=== PATIENT | male | born 1945 | race Caucasian/White ===

== ENCOUNTER 2018-02-19 02:15 | Outpatient (CLI) | payer BC, SELFPAY ==
[2018-02-19 12:58] LABS: Abs Immature Grans 0.02 k/cumm (0.0-0.09); Absolute Basophil Count 0.02 k/cumm (0.0-0.2); Absolute Eosinophil Count 0.24 k/cumm (0.0-0.7); Absolute Lymphocyte Count 2.22 k/cumm (1.2-3.4); Absolute Monocyte Count 0.51 k/cumm (0.11-0.7); Absolute Neutrophil Count 2.35 k/cumm (1.2-6.7); Basophils % 0.4; Eosinophils % 4.5; HCT 40.4 % (40.0-50.0); HGB 13.1 g/dL (13.5-17.5); Immature Grans % 0.4; Lymphocytes % 41.4; Mean Corp. HGB Concentration 32.4 g/dL (32.0-36.0); Mean Corpuscular Volume 89.4 fL (80-95); Mean Platelet Volume 11.2 fL (8.0-11.0); Monocytes % 9.5; Neutrophils % 43.8; Platelet Count 172 x1000/uL (130-400); RBC 4.52 m/cumm (4.50-6.00); RBC Distribution Width 17.1 % (11.8-14.1); White Blood Cell Count 5.36 k/cumm (4.4-10.8)
== END 2018-02-19 02:35 ==
PROVIDERS: PCP Internal Medicine; Visit Provider Internal Medicine
DX: D64.9 Anemia, unspecified (principal)
CPT/HCPCS: 36415; 85025

== ENCOUNTER → 2018-06-19 10:30 | Outpatient (BNVA) | payer MEDICARE, BC, SELFPAY | PROVIDERS: PCP Internal Medicine; Referring Provider Internal Medicine; Visit Provider Orthopaedic Surgery | DX: M65.4 Radial styloid tenosynovitis [de Quervain] (principal); M25.532 Pain in left wrist | CPT/HCPCS: 99211; 99214; L3908 ==

== ENCOUNTER → 2018-07-23 09:12 | Outpatient (BNVA) | payer MEDICARE, BC, SELFPAY | PROVIDERS: PCP Internal Medicine; Referring Provider Internal Medicine; Visit Provider Orthopaedic Surgery | DX: M65.4 Radial styloid tenosynovitis [de Quervain] (principal) | CPT/HCPCS: 99213 ==

== ENCOUNTER 2018-08-01 13:57 | Outpatient (RCR) | payer MEDICARE, BC, SELFPAY | END 2018-08-14 16:08 | LOC: CR 13:57 | PROVIDERS: PCP Internal Medicine; Visit Provider Family Medicine | DX: Z51.89 Encounter for other specified aftercare (principal) ==

== ENCOUNTER 2018-08-16 15:20 | Outpatient (RCR) | payer SELFPAY ==
--- NOTE | 2018-08-13 09:16 | PR3E_ITS ---
73 year old male returning to cardiac rehab maintenance phase, 3 days per week, after many months recovery and continued physical therapy for severe guillain- barre syndrome event. PMH: guillain-barre, bells palsy, Stents 2014, HLD, HTN, PAD s/p stent 2011, CAD, SILVANA, glaucoma, cirrhosis. First day of exercise: 08/12/18: BP at rest 133/72, HR rest 47 bpm. Patient completed 18.5 minutes of exercise: NuStep 5.5 minutes, UBE 5 minutes, and treadmill 5 minutes and rower 3 minutes. HR w/ exercise ranged 46-55 bpm. BENJI RPE scores 12-13. BP with exercise ranged 113/53-151/71. Tolerated exercise regimen without any adverse signs or symptoms. No concerns at this time, will continue to progress as tolerated.
== END 2018-08-18 23:59 | disposition home or self-care (01) ==
LOC: CR 15:20
PROVIDERS: PCP Internal Medicine; Visit Provider Family Medicine
DX: Z51.89 Encounter for other specified aftercare (principal)

== ENCOUNTER → 2018-08-20 09:18 | Outpatient (BNVA) | payer MEDICARE, BC, SELFPAY | PROVIDERS: PCP Internal Medicine; Referring Provider Internal Medicine; Visit Provider Orthopaedic Surgery | DX: M65.4 Radial styloid tenosynovitis [de Quervain] (principal) | CPT/HCPCS: 99211; 99212 ==

== ENCOUNTER 2018-08-21 09:49 | Outpatient (CLI) | payer MEDICARE, BC, SELFPAY ==
--- NOTE | 2018-08-21 17:20 | HPE_ITS ---
Date of service: 08/21/18 Time of Service: 08:15 Assessment and Plan (1) Hypertension: Current visit: No Status: Resolved (2) Hx of Guillain-[place] syndrome: Current visit: No Status: Acute (3) Tenosynovitis, de Quervain: Current visit: Yes Status: Acute 73-year-old male with history of atherosclerotic cardiovascular disease/angina without a history of NH with total resolution of symptoms following stenting with no use of sublingual nitroglycerin with left-sided de Quervain's syndrome not resolving with conservative measures of splinting and oral prednisone short taper. The patient is very familiar with the surgical procedure and is aware of the short postop course consisting of splinting for 5 days and is anxious to proceed. History of Present Illness Chief Complaint: left wrist pain Narrative: javed reports persistent left nondominant wrist pain of several months duration that is bothersome with opening jars lifting his coffee cup despite thumb spica splinting for several months and a short prednisone taper. He has very familiar with the symptoms as he is status post a right first dorsal extensor compartment release for de Quervain's tenosynovitis. He now presents for surgical intervention since conservative measures did not quiet down his discomfort at all. Pertinent Surgical Information Denies previous medical history of: stroke, TIA, NH, use of sublingual nitroglycerin, GERD, seizures, diabetes, thyroid disease, sleep apnea, liver disease, hepatitis, hematologic disorders Denies previous complications from surgery or anesthesic agents with respect to high fever, prolonged vomiting and difficulty waking up Review of Systems Constitutional Denies fever(s) and Denies headache(s) ENT Denies headache(s), Denies nasal congestion, Denies nasal discharge and Denies sore throat Cardiovascular Denies chest pain, Denies chest pain with activity, Denies palpitations, Denies dyspnea on exertion, Denies orthopnea and Denies paroxysmal nocturnal dyspnea Respiratory Denies cough, Denies excessive phlegm production, Denies pain on inspiration, Denies dyspnea on exertion and Denies wheezing Gastrointestinal Denies abdominal pain, Denies melena, Denies hematochezia, Denies nausea and Denies vomiting Genitourinary Denies hematuria, Denies dysuria and Denies urinary frequency Comments: Denies burning sensation with urination Musculoskeletal Reports as per HPI Neurologic Denies headache(s) Psychiatric Denies anxiety and Denies depression Endocrine Denies palpitations Comments: Denies any unplanned weight changes Allergic/Immunologic Denies wheezing PFSH Medical History SILVANA (obstructive sleep apnea) (Resolved) Hx of Guillain-[place] syndrome (Acute) Hx of coronary artery disease (Acute) Hx of glaucoma (Acute) Hx of hearing loss (Acute) Hx of peripheral vascular disease (Acute) Hx of psoriasis (Acute) Hypertension (Resolved) Surgical History Status post de Quervain's release surgery (Acute) Hx of tracheostomy (Acute) History of cataract surgery (Chronic) History of coronary artery stent placement (Chronic) History of esophagogastroduodenoscopy (EGD) (Chronic) Excision, Skin Mass MOHS Family History Mother Essential hypertension Father Essential hypertension Heart disease Hyperlipidemia Myocardial infarction Stroke Sister Hyperlipidemia Cancer Grandfather No problems noted. Grandfather No problems noted. Grandmother No problems noted. Grandmother No problems noted. Social History Smoking/Tobacco Use Status: Former Tobacco Use Quit Date: 05/21/08 Smokeless tobacco user: dissolvable tobacco Alcohol Intake: never Details: abstinent since 2011 Drug use: Occasionally Substance use type: marijuana Household members: spouse and other Details: 3 Do you feel safe at home: Yes Do you feel safe in your relationship?: Yes Meds Home Medications Medication Instructions Recorded Confirmed Type Cosopt Eye Drops 1 drp OU BID drp 10/04/12 08/21/18 History latanoprost [Xalatan] 1 drp OU DAILY drp 10/04/12 08/21/18 History sildenafil [Viagra] 100 mg PO PRN 10/04/12 08/20/18 History docusate sodium [Colace] 2 tab PO DAILY 10/17/17 08/21/18 History pravastatin 80 mg PO DAILY #90 tab-cap 10/17/17 08/21/18 Rx sennosides [Senna] 2 tab-cap PO DAILY tab-cap 10/17/17 08/21/18 History trazodone 75 mg PO HS #120 cap 11/02/17 08/21/18 Rx pantoprazole 40 mg PO DAILY #90 tab-cap 01/10/18 08/21/18 Rx acyclovir 400 mg tablet 400 mg PO Q4H PRN #20 tab 02/18/18 08/21/18 Rx aspirin 81 mg tablet,delayed 81 mg PO DAILY 02/18/18 08/21/18 History release omega-3 fatty acids 1,250 mg 1,280 mg PO TID cap 02/18/18 08/21/18 History capsule levothyroxine 75 mcg tablet 75 mcg PO DAILY #90 tab-cap 06/14/18 08/21/18 Rx nitroglycerin 0.4 mg sublingual 0.4 mg BUCCAL ONCE #60 tab 07/17/18 08/21/18 Rx tablet ustekinumab [Stelara] 45 mg SUBCUT Q12W 08/21/18 08/21/18 History Allergies Allergy/AdvReac Type Severity Reaction Status Date / Time codeine [Codeine] Allergy Intermediate ITCHING Unverified 08/21/18 10:09 Exam Const General: cooperative HENMT Throat: posterior oropharynx normal Eyes General: appearance normal, both eyes and all related structures Conjunctivae: conjunctivae normal Sclera: sclerae normal Neck Neck: no JVD Carotids: normal carotid upstroke and no bruits Resp Effort & Inspection: normal respiratory effort and able to speak in complete sentences Auscultation: clear to auscultation bilaterally, no rales, no rhonchi and no wheezes Cardio Rate: regular rate Heart Sounds: S1 normal, S2 normal and no murmurs Bruits: no abdominal aortic bruits Pulses: normal peripheral pulses Other: No pulsatile mass noted with palpation over the abdominal aorta GI Palpation: soft and no hepatosplenomegaly Auscultation: normal bowel sounds General: No CVA tenderness Extrem General: no pedal edema Other: left wrist with tender over first dorsal extensor compartment with a positive Myra's test no pain to thumb metacarpal grind and normal EPL function. Lower extremities show trace pedal edema with elastic sock edgge imprint.
== END 2018-08-21 10:09 ==
PROVIDERS: PCP Internal Medicine; Visit Provider Orthopaedic Surgery
DX: Z01.818 Encounter for other preprocedural examination (principal); M65.4 Radial styloid tenosynovitis [de Quervain]; I10 Essential (primary) hypertension

== ENCOUNTER 2018-08-28 11:18 | Day surgery (SDC) | payer MEDICARE, BC, SELFPAY ==
[2018-08-28 11:51] VITALS: BP 125/67; PULSE 42; RESP 16; TEMP 36.7; O2SAT 99
[2018-08-28] MEDS: Lactated Ringers 1,000 ML 80 ML IV (12:10)
[2018-08-28] MEDS: ceFAZolin 1 GM/50 ML BAG IVPB (13:11)
--- NOTE | 2018-08-28 14:06 | PDOC.DSDIS_ITS ---
Discharge Plan Disposition Patient Disposition: HOME Condition: Good Discharge Details Reason For Visit: DeQuervain's release L Attending Provider: Maninder Mueller Primary Care Provider: Katty Mcwilliams Home Meds and New Rx's Prescriptions: New ibuprofen 800 mg tablet 800 mg PO TID Qty: 20 RF: 0 hydrocodone-acetaminophen 5-325 mg tablet 1 tab PO Q6H PRN (Reason: pain) Qty: 7 RF: 0 Continued nitroglycerin 0.4 mg tablet, sublingual 0.4 mg Buccal ONCE Qty: 60 RF: 2 omega-3 fatty acids 1,250 mg capsule 1,280 mg PO TID RF: 0 aspirin [Adult Low Dose Aspirin] 81 mg tablet,delayed release (DR/EC) 81 mg PO DAILY RF: 0 acyclovir [Zovirax] 400 mg tablet 400 mg PO Q4H PRN Qty: 20 RF: 5 latanoprost [Xalatan] 2.5 ML drops 1 drp OU DAILY RF: 0 sildenafil [Viagra] 100 MG tablet 100 mg PO PRN RF: 0 COSOPT EYE DROPS 5 ML drops 1 drp OU BID RF: 0 sennosides [senna] 8.6 MG tablet 2 tab-cap PO DAILY RF: 0 docusate sodium [Colace] 100 MG capsule 2 tab PO DAILY RF: 0 pravastatin 80 MG tablet 80 mg PO DAILY Qty: 90 RF: 3 trazodone 50 MG tablet 75 mg PO HS Qty: 120 RF: 5 pantoprazole 40 MG tablet,delayed release (DR/EC) 40 mg PO DAILY Qty: 90 RF: 3 levothyroxine [Synthroid] 75 mcg tablet 75 mcg PO DAILY Qty: 90 RF: 4 Stelara 45 mg/0.5 mL Syringe 45 mg SUBCUT Q12W RF: 0 Discharge Instructions Additional Instructions: Elevate L hand above heart level as much as possible overnite tonite. Keep dressings and splint dry and intact for 5 days. After 5 days, remove splint AND dressings and begin to move L thumb and wrist. Use L hand as much as your discomfort allows. Leave incision uncovered when it is dry and sealed. Follow up with in 10-14 days. Take ibuprofen as prescribed for inflammation and swelling. Take hydrocodone if needed, for breakthru pain. Referrals: Maninder Mueller MD [ [facility] STAFF PHYSICIAN] - (f/u in 10-14 days.) Equipment/Supplies: Splint Activity:: Activity as Tolerated Shower/Bathe:: Cover Diet:: As Tolerated Discharge Orders Discharge Orders: Discharge Order (Routine); Ordered 08/28/18 Ordered By: Maninder Mueller DS: Diagnosis Discharge Diagnosis (1) Tenosynovitis, de Quervain: Status: Acute
[2018-08-28 14:35] VITALS: BP 139/76; PULSE 42; RESP 14; TEMP 36.7; O2SAT 98
--- NOTE | 2018-08-29 07:15 | ROE_ITS ---
REPORT OF OPERATIVE PROCEDURE DATE OF PROCEDURE August 28, 2018 PREOPERATIVE DIAGNOSIS De Quervain's tendinitis, left wrist. POSTOPERATIVE DIAGNOSIS De Quervain's tendinitis, left wrist. PROCEDURES Tendon sheath incision at radial styloid for de Quervain's tendinitis. Application of a short arm thumb spica splint. ANESTHESIA IV regional. SURGEON Maninder Mueller M.D. INDICATIONS This is a 73-year-old white male with de Quervain's tendinitis of his left wrist. This has failed to respond to conservative treatment of anti-inflammatory medications and splinting. Tendon sheath incision of the first dorsal extensor compartment was recommended to alleviate his symp toms on a permanent basis. The risks and complications of the procedure were explained to the patient in detail preoperatively. DESCRIPTION OF PROCEDURE The patient was taken to the Operating Room on 08/28/2018. He was placed supine on the operating tabl e and an IV regional anesthetic was administered to the right upper extremity. Once good anesthesia was obtained, the right hand, wrist and forearm were prepped and draped free in the usual sterile fas hion. A longitudinal incision was made over the first dorsal extensor compartment at the radial styl oid. The incision was about 2 and a half to 3 inches in length. The incision was carried down throu gh the skin and subcu. The terminal branches of the superficial radial nerve were mobilized away fro m the first dorsal extensor compartment. The first dorsal extensor compartment was then longitudinall y incised. As the contents of the compartment were explored, there was one tendon slip that was encased in a sep arate compartment within the first dorsal extensor compartment. The wall of the separate compartment was excised with a rongeur, freeing the tendon slip. At this point, the wound was irrigated with sali ne solution. The wound margins were infiltrated with 0.5% Marcaine with epinephrine solution. The ski n edges were approximated with horizontal mattress sutures of #4-0 Nylon suture material. The wound was dressed with Xeroform gauze, sterile gauze, 4x4s, ABD Pad, wrapped with a 4-inch Kerlix bandage, and then a radial thumb spica splint was applied with a 3-inch Mitch bandage. The patient's anesthesia was reversed without complication. Blood loss was minimal. He was discharged to the Recovery Room in good condition. The patient was later discharged home from the Day Surgery Unit when fully recovered from his IV janelle onal anesthesia. He was given in instructions to elevate his left hand above heart level as much as possible overnight tonight. He is to keep the dressings and splint intact and dry for five days. After five days, he is to remove his splint and dressings and begin to move his left thumb and wrist. He may use his left hand as muc h as discomfort allows. He may shower and bathe and get his incision wet after five days. He may gayathri ve the incision uncovered when it is dry and sealed. He will take ibuprofen or Tylenol for mild pain, and he was given a prescription for breakthrough pa in of hydrocodone with APAP 5/325, one tablet every six hours as needed, #7 tabs. He will follow up with Dr. Mueller 10 to 14 days.
== END 2018-08-28 14:59 | disposition home or self-care (01) ==
PROVIDERS: PCP Internal Medicine; Visit Provider Orthopaedic Surgery
PROC: (CPT 25000; principal; 2018-08-28 13:00)
DX: M65.4 Radial styloid tenosynovitis [de Quervain] (principal)
CPT/HCPCS: 25000; J0690

== ENCOUNTER → 2018-09-10 09:04 | Outpatient (BNVA) | payer MEDICARE, BC, SELFPAY | PROVIDERS: PCP Internal Medicine; Referring Provider Internal Medicine; Visit Provider Orthopaedic Surgery | DX: Z47.89 Encounter for other orthopedic aftercare (principal); M65.4 Radial styloid tenosynovitis [de Quervain] ==

== ENCOUNTER 2018-09-11 13:00 | Outpatient (RCR) | payer SELFPAY | END 2018-09-17 23:59 | disposition home or self-care (01) | LOC: CR 13:00 | PROVIDERS: PCP Internal Medicine; Visit Provider Family Medicine | DX: Z51.89 Encounter for other specified aftercare (principal) | CPT/HCPCS: S9472 ==

== ENCOUNTER 2018-10-16 07:00 | Outpatient (RCR) | payer SELFPAY | END 2018-10-18 23:59 | disposition home or self-care (01) | LOC: CR 07:00 | PROVIDERS: PCP Internal Medicine; Visit Provider Family Medicine | DX: Z51.89 Encounter for other specified aftercare (principal) | CPT/HCPCS: S9472 ==

== ENCOUNTER 2018-11-15 12:51 | Outpatient (RCR) | payer SELFPAY | END 2018-11-17 23:59 | disposition home or self-care (01) | LOC: CR 12:51 | PROVIDERS: PCP Internal Medicine; Visit Provider Family Medicine | DX: Z51.89 Encounter for other specified aftercare (principal) | CPT/HCPCS: S9472 ==

== ENCOUNTER 2018-12-18 13:39 | Outpatient (RCR) | payer SELFPAY | END 2018-12-18 23:59 | disposition home or self-care (01) | LOC: CR 13:39 | PROVIDERS: PCP Internal Medicine; Visit Provider Family Medicine | DX: Z51.89 Encounter for other specified aftercare (principal) | CPT/HCPCS: S9472 ==

== ENCOUNTER 2019-01-03 13:24 | Outpatient (RCR) | payer SELFPAY | END 2019-01-18 23:59 | disposition home or self-care (01) | LOC: CR 13:24 | PROVIDERS: PCP Internal Medicine; Visit Provider Family Medicine | DX: Z51.89 Encounter for other specified aftercare (principal) | CPT/HCPCS: S9472 ==

== ENCOUNTER 2019-01-13 09:19 | Outpatient (CLI) | payer MEDICARE, BC, SELFPAY ==
[2019-01-13 12:35] LABS: Abs Immature Grans 0.01 k/cumm (0.0-0.09); Absolute Basophil Count 0.03 k/cumm (0.0-0.2); Absolute Eosinophil Count 0.36 k/cumm (0.0-0.7); Absolute Lymphocyte Count 2.08 k/cumm (1.2-3.4); Absolute Monocyte Count 0.53 k/cumm (0.11-0.7); Absolute Neutrophil Count 2.49 k/cumm (1.2-6.7); Basophils % 0.5; Eosinophils % 6.5; HCT 43.5 % (40.0-50.0); HGB 14.3 g/dL (13.5-17.5); Immature Grans % 0.2; Lymphocytes % 37.8; Mean Corp. HGB Concentration 32.9 g/dL (32.0-36.0); Mean Corpuscular Hemoglobin 29.1 pg (27.0-33.0); Mean Corpuscular Volume 88.6 fL (80-95); Mean Platelet Volume 11.3 fL (8.0-11.0); Monocytes % 9.6; Neutrophils % 45.4; Platelet Count 188 x1000/uL (130-400); RBC 4.91 m/cumm (4.50-6.00); RBC Distribution Width 15.6 % (11.8-14.1)
[2019-01-13 12:45] LABS: ALT 30 U/L (16-63); AST 21 U/L (15-37); Albumin 3.9 g/dL (3.4-5.0); Alkaline Phosphatase 66 U/L (46-116); Anion Gap 10.1 mmol/L (3-11); BUN 15 mg/dL (7-18); Bilirubin, Total 0.5 mg/dL (0.2-1.0); CO2 27.9 mmol/L (21.0-32.0); CREATININE 1.01 mg/dL (0.70-1.30); Chloride 107 mmol/L (98-107); Glucose 97 mg/dL (70-100); Potassium 4.3 mmol/L (3.5-5.1); Sodium 145 mmol/L (136-145); Total Protein 6.9 g/dL (6.4-8.2)
[2019-01-13 14:27] LABS: ESR 15 mm/hr (1-20)
[2019-01-14 10:23] LABS: PSA, Screening 1.2 ng/ml (0-6.5)
== END 2019-01-13 09:39 ==
PROVIDERS: PCP Internal Medicine; Visit Provider Internal Medicine
DX: R35.0 Frequency of micturition (principal); R50.9 Fever, unspecified; G61.0 Guillain-Barre syndrome; I10 Essential (primary) hypertension; Z12.5 Encounter for screening for malignant neoplasm of prostate
CPT/HCPCS: 36415; 80053; 84153; 85652; 85025

== ENCOUNTER 2019-02-17 13:00 | Outpatient (RCR) | payer SELFPAY | END 2019-02-17 23:59 | disposition home or self-care (01) | LOC: CR 13:00 | PROVIDERS: PCP Internal Medicine; Visit Provider Family Medicine | DX: Z51.89 Encounter for other specified aftercare (principal) | CPT/HCPCS: S9472 ==

== ENCOUNTER 2019-03-17 13:36 | Outpatient (RCR) | payer SELFPAY | END 2019-03-20 23:59 | disposition home or self-care (01) | LOC: CR 13:36 | PROVIDERS: PCP Internal Medicine; Visit Provider Family Medicine | DX: Z51.89 Encounter for other specified aftercare (principal) | CPT/HCPCS: S9472 ==

== ENCOUNTER 2019-04-14 13:15 | Outpatient (RCR) | payer SELFPAY | END 2019-04-19 23:59 | disposition home or self-care (01) | LOC: CR 13:15 | PROVIDERS: PCP Internal Medicine; Visit Provider Family Medicine | DX: Z51.89 Encounter for other specified aftercare (principal) | CPT/HCPCS: S9472 ==

== ENCOUNTER 2019-04-20 23:26 | Outpatient (RCR) | payer SELFPAY | END 2019-05-20 23:59 | disposition home or self-care (01) | LOC: CR 23:26 | PROVIDERS: PCP Internal Medicine; Visit Provider Family Medicine | DX: Z51.89 Encounter for other specified aftercare (principal) ==

== ENCOUNTER 2019-06-16 13:09 | Outpatient (RCR) | payer SELFPAY | END 2019-06-20 23:59 | disposition home or self-care (01) | LOC: CR 13:09 | PROVIDERS: PCP Internal Medicine; Visit Provider Family Medicine | DX: Z51.89 Encounter for other specified aftercare (principal) | CPT/HCPCS: S9472 ==

== ENCOUNTER 2019-07-18 13:35 | Outpatient (RCR) | payer SELFPAY | END 2019-07-19 23:59 | disposition home or self-care (01) | LOC: CR 13:35 | PROVIDERS: PCP Internal Medicine; Visit Provider Family Medicine | DX: Z51.89 Encounter for other specified aftercare (principal) | CPT/HCPCS: S9472 ==

== ENCOUNTER 2019-07-25 13:41 | Outpatient (RCR) | payer SELFPAY | END 2019-08-19 23:59 | disposition home or self-care (01) | LOC: CR 13:41 | PROVIDERS: PCP Internal Medicine; Visit Provider Family Medicine | DX: Z51.89 Encounter for other specified aftercare (principal) | CPT/HCPCS: S9472 ==

== ENCOUNTER 2019-10-15 02:33 | Outpatient (CLI) | payer MEDICARE, BC, SELFPAY ==
[2019-10-15 10:42] LABS: Abs Immature Grans 0.01 k/cumm (0.0-0.09); Absolute Basophil Count 0.02 k/cumm (0.0-0.2); Absolute Eosinophil Count 0.55 k/cumm (0.0-0.7); Absolute Monocyte Count 0.57 k/cumm (0.11-0.7); Basophils % 0.3; Eosinophils % 8.9; HGB 14.3 g/dL (13.5-17.5); Immature Grans % 0.2 %; Lymphocytes % 34.1; Mean Corpuscular Hemoglobin 30.4 pg (27.0-33.0); Mean Corpuscular Volume 89.2 fL (80-95); Mean Platelet Volume 10.5 fL (8.0-11.0); Monocytes % 9.3; Neutrophils % 47.2; Platelet Count 206 x1000/uL (130-400); RBC 4.71 m/cumm (4.50-6.00); RBC Distribution Width 14.9 % (11.8-14.1); White Blood Cell Count 6.15 k/cumm (4.4-10.8)
[2019-10-15 11:38] LABS: ALT 25 U/L (16-63); AST 15 U/L (15-37); Albumin 3.9 g/dL (3.4-5.0); Alkaline Phosphatase 56 U/L (46-116); Anion Gap 8.9 mmol/L (3-11); BUN 16 mg/dL (7-18); Bilirubin, Total 0.6 mg/dL (0.2-1.0); CO2 26.1 mmol/L (21.0-32.0); CREATININE 1.03 mg/dL (0.70-1.30); Calcium 8.7 mg/dL (8.5-10.1); Chloride 107 mmol/L (98-107); Glucose 100 mg/dL (74-106); Potassium 4.2 mmol/L (3.5-5.1); Sodium 142 mmol/L (136-145); Total Protein 6.9 g/dL (6.4-8.2)
[2019-10-17 15:00] LABS: TB Interpretation Negative (Negative); TB1 Ag minus Nil 0.02 IU/ml; TB2 Ag minus Nil 0.03 IU/mL
== END 2019-10-15 02:53 ==
PROVIDERS: PCP Nurse Practitioner; Visit Provider Dermatology
DX: Z79.899 Other long term (current) drug therapy (principal); L98.8 Other specified disorders of the skin and subcutaneous tissue
CPT/HCPCS: 36415; 80053; 85025; 86480

== ENCOUNTER 2020-02-18 05:32 | Outpatient (CLI) | payer MEDICARE, BC, SELFPAY ==
[2020-02-18 13:02] LABS: HCT 43.4 % (40.0-50.0); HGB 14.6 g/dL (13.5-17.5); MCH 30.9 pg (27.0-33.0); MCHC 33.6 % (32.0-36.0); MCV 91.9 fL (80-95); MPV 10.8 fL (8.0-11.0); Platelet Count 183 10^3/uL (130-400); RBC 4.72 10^6/uL (4.36-5.78); RDW 14.4 % (11.8-14.1); RDW-SD 48.6 fL; WBC 6.18 10^3/uL (4.4-10.8)
[2020-02-18 13:24] LABS: Iron 57 ug/dL (65-175)
[2020-02-18 13:35] LABS: Calculated LDL 105 mg/dL (<100); Cholesterol 166 mg/dL (<200); Ferritin 15 ng/mL (26-388); HDL Cholesterol 49 mg/dL (40-60); Triglyceride 63 mg/dL (<150)
[2020-02-18 17:57] LABS: PSA, Screening 0.8 ng/mL (0.0-6.5)
== END 2020-02-18 05:52 ==
PROVIDERS: PCP Nurse Practitioner; Visit Provider Nurse Practitioner
DX: I25.10 Atherosclerotic heart disease of native coronary artery without angina pectoris (principal); E03.9 Hypothyroidism, unspecified; I10 Essential (primary) hypertension; K74.60 Unspecified cirrhosis of liver; E83.119 Hemochromatosis, unspecified; N40.1 Benign prostatic hyperplasia with lower urinary tract symptoms; R39.9 Unspecified symptoms and signs involving the genitourinary system; Z12.5 Encounter for screening for malignant neoplasm of prostate
CPT/HCPCS: 36415; 80061; 84153; 85027; 82728; 83540; 84443

== ENCOUNTER 2020-03-05 04:48 | Outpatient (CLI) | payer MEDICARE, BC, SELFPAY ==
--- NOTE | 2020-03-05 07:00 | DI.CT_ITS ---
EXAM: CT CHEST WO CLINICAL HISTORY: SCREENING FOR LUNG CA,FORMER SMOKER,Z87.891 TECHNIQUE: Imaging Protocol: Axial computed tomography images with coronal and sagittal reformatted images were created and reviewed COMPARISON: No exams were available for comparison FINDINGS: Tracheobronchial tree: Patent where visualized. Mediastinum and Dinorah: No dominant adenopathy or fluid collection. Pulmonary parenchyma: No consolidation or dominant measurable mass. There is scarring in the left alondra gula. There is a calcified granuloma in the right upper lobe. Lung Nodules: None. Pleura: No effusion or pneumothorax. Heart: The heart is not dilated. Marked coronary artery calcification. No significant pericardial ef fusion. Aorta: Thoracic aorta non-dilated.Atherosclerosis. Upper abdomen: Unremarkable. Bones: No acute abnormality. DISH in the thoracic spine. Soft Tissues: Unremarkable. IMPRESSION: No pulmonary nodules. Lung RADS Cat 1 - Negative: No nodules and definitely benign nodules Lung-RADS 1.0 CATEGORIES: Category 0 - Prior chest CT exam(s) being located for comparison. Category 1 - Annual screening in 12 months. No nodules or definitely benign nodules. Category 2 - Annual screening in 12 months. Benign appearance. Nodules with low likelihood of becomin g active cancer. Category 3 - 6-month follow-up. Probably benign. Short-term follow-up suggested. Nodules with low lik elihood of becoming active cancer. Category 4A - 3-month follow-up and CT/PET if >8 mm in size. Suspicious finding. Findings which requi re additional testing. Category 4B - Findings which require additional testing and tissue sampling. Suspicious finding. C Added to Any of the Above - History of prior lung cancer screening. S Added to Any of the Above - Significant unexpected other finding. RADIATION DOSE DELIVERED: 101.28mGy.cm Total DLP 101.28mGy.cm Total DLP DATA REPOSITORY: All CT scans at this facility are submitted to the National Radiology Data Registry (NRDR) Dose Index Registry (DIR) with the [employer] (ACR). RADIATION OPTIMIZATION: All CT scans at this facility use at least one of these dose optimization te chniques: automated exposure control; mA and/or kV adjustment per patient size (includes targeted exa ms where dose is matched to clinical indication); or iterative reconstruction.
== END 2020-03-05 05:08 ==
PROVIDERS: PCP Nurse Practitioner; Visit Provider Nurse Practitioner
DX: Z87.891 Personal history of nicotine dependence (principal)
CPT/HCPCS: 71250

== ENCOUNTER 2020-08-02 03:22 | Outpatient (CLI) | payer MEDICARE, BC, SELFPAY ==
[2020-08-02 16:40] LABS: ALT 29 U/L (16-63); AST 20 U/L (15-37); Alkaline Phosphatase 60 U/L (46-116); Bilirubin, Direct 0.1 mg/dL (0.0-0.2); Bilirubin, Total 0.4 mg/dL (0.2-1.0); CREATININE 0.9 mg/dL (0.70-1.30); Potassium 4.6 mmol/L (3.5-5.1); Total Protein 7.1 g/dL (6.4-8.2)
== END 2020-08-02 03:23 | disposition home or self-care (01) ==
LOC: LBO 03:23
PROVIDERS: PCP Nurse Practitioner; Visit Provider Nurse Practitioner
DX: I10 Essential (primary) hypertension (principal); K74.60 Unspecified cirrhosis of liver
CPT/HCPCS: 36415; 80076; 82565; 84132

== ENCOUNTER 2020-08-17 02:46 | Outpatient (CLI) | payer MEDICARE, BC, SELFPAY ==
--- NOTE | 2020-08-17 06:45 | DI.US_ITS ---
EXAM: US ABDOMEN CLINICAL HISTORY: follow up cirrhosis,K74.60 TECHNIQUE: Ultrasound abdomen performed using standard protocol. COMPARISON: US ABDOMEN ULTRASOUND from 04/02/2009 CT UPPER ABD WITH CONTRAST (P) from 04/13/2009 FINDINGS: LIVER: Mildly enlarged, greater than 17 cm in length. Normal overall echogenicity. No focal liver l esions are seen.. The previous ultrasound showed hyperechoic areas which are not appreciated on tod ay's exam. There is no significant liver nodularity or coarsened echotexture. GALLBLADDER: No evidence of cholelithiasis. No evidence of wall thickening. No pericholecystic fluid identified. MITTAL'S SIGN: Negative. BILIARY SYSTEM: No intrahepatic or extrahepatic biliary ductal dilation. KIDNEYS: Kidneys are symmetric in size. No evidence of renal calculi. No evidence of hydronephrosis. No renal mass or cyst identified. PANCREAS: Normal where visualized. SPLEEN: Not enlarged. ABDOMINAL AORTA AND IVC: Visualized portions normal caliber. ASCITES: None seen. IMPRESSION: Mildly enlarged liver. Focal liver lesions seen previously are not demonstrated on today's exam. DATA REPOSITORY:
== END 2020-08-17 03:06 ==
PROVIDERS: PCP Nurse Practitioner; Visit Provider Nurse Practitioner
DX: K74.60 Unspecified cirrhosis of liver (principal); R16.0 Hepatomegaly, not elsewhere classified; I10 Essential (primary) hypertension
CPT/HCPCS: 76700

== ENCOUNTER → 2020-12-03 07:53 | Outpatient (BNVA) | payer MEDICARE, BC, SELFPAY | PROVIDERS: PCP Nurse Practitioner; Referring Provider Nurse Practitioner; Visit Provider Physical Therapy Assistant | DX: Z12.11 Encounter for screening for malignant neoplasm of colon (principal); Z86.010 Personal history of colon polyps ==

== ENCOUNTER 2020-12-13 09:03 | Day surgery (SDC) | payer MEDICARE, BC, SELFPAY ==
--- NOTE | 2020-12-13 06:45 | W.COLOREPORT ---
Date of service: 12/13/20 Time of Service: : Colonoscopy Report Date of procedure: 12/13/20 Pre-op diagnosis general: Screening colonoscopy for Hx of colon polyps Post-op diagnosis procedure note: same (polyps) Procedure: Colonoscopy with polypectomy Surgeon: Sherly Lara Anesthesia Type: General:No Airway (ASA 3/Carrington Guerra CRNA) Complications: None Disposition: same day Indications: The patient is here for Colonoscopy pre-op. His last screening was in 2012 and was remarkable for a single tubular adenomatous polyp. He has no family history of colon cancer. He has not had any bowel habit changes. -Discussed colonoscopy bowel prep as well as the procedure. Discussed possible complications of the procedure to include bleeding, pain, perforation, missed small lesion/polyp, sore throat, aspiration and adverse reaction to the medications. Questions were answered to patient?s satisfaction. No guarantees were implied or given. Prep: Miralax/Dulcolax Procedure Start Time: 10:22 Procedure End Time: 10:49 Retraction Time: 15 minutes Findings: 3 small sessile polyps (<10 mm) 1 pendunculated polyp (<10 mm) Procedure Description: After informed consent was obtained the patient was taken to the procedure room and placed in a left decubitous position. Monitors were applied and a time out was done. The patients name, date of , procedure, allergies to medications and metal in their body was reviewed. The patient was then sedated. Once sedated and comfortable a rectal exam was done. External exam was normal. Internal exam revealed a normal sphincter tone and no palpable masses. The prostate felt smooth and slightly enlarged. The scope was then introduced and retro-flexed. No internal hemorrhoids, polyps or masses were identified on retro-flexion. The scope was then advanced to the cecum without difficulty. The patient did become bradychardic and he was given both Robinol and Atropin. Once his Heart rate came up I was able to advance the scope into the cecum. The ileocecal vlave and appendiceal orifice were identified. The prep was good. The scope was then slowly retracted over 15 minutes back into the rectum. Polyps were removed with cold forceps in the ascending colon x2 and descending colon. One polyp was removed with hot snare in the sigmoid colon. There was no diverticulosis noted. The scope was removed and the patient was woken up and taken back to Same day surgery in stable condition. The patient tolerated the procedure well and there were no immediate complications. Follow up: The patient should follow up in 3-5 years unless they develop changes in bowel habits or other new gastrointestinal complaints.
--- NOTE | 2020-12-13 06:46 | W.PM.DSUDISC ---
Discharge Plan Disposition Patient Disposition: HOME Condition: Good Discharge Details Reason For Visit: Colonoscopy Attending Provider: Sherly Lara Primary Care Provider: Nieves Mejia Home Meds and New Rx's Prescriptions: Continued omega-3 fatty acids 1,250 mg capsule 1,280 mg PO TID RF: 0 aspirin [Adult Low Dose Aspirin] 81 mg tablet,delayed release (DR/EC) 81 mg PO DAILY RF: 0 nitroglycerin 0.4 mg tablet, sublingual 0.4 mg Buccal ONCE Qty: 60 RF: 2 latanoprost [Xalatan] 2.5 ML drops 1 drp OU DAILY RF: 0 COSOPT EYE DROPS 5 ML drops 1 drp OU BID RF: 0 sennosides [senna] 8.6 MG tablet 2 tab-cap PO DAILY RF: 0 docusate sodium [Colace] 100 MG capsule 2 tab PO DAILY RF: 0 brimonidine 0.1 % drops 1 drp OP DAILY RF: 0 acetaminophen [Tylenol] 325 mg capsule 650 mg PO QID PRNRF: 0 pantoprazole 40 mg tablet,delayed release (DR/EC) 40 mg PO DAILY Qty: 90 RF: 3 acyclovir 400 mg tablet 400 mg PO Q4H PRN Qty: 20 RF: 5 trazodone 150 mg tablet 150 mg PO QHS Qty: 30 RF: 11 levothyroxine [Synthroid] 75 mcg tablet 75 mcg PO DAILY Qty: 90 RF: 4 pravastatin 80 mg tablet 80 mg PO DAILY Qty: 90 RF: 4 Stelara 45 mg/0.5 mL Syringe 45 mg SUBCUT Q12W RF: 0 Discontinued polyethylene glycol 3350 17 gram/dose powder 238 g PO ONCE Qty: 238 RF: 0 bisacodyl [Dulcolax (bisacodyl)] 5 mg tablet,delayed release (DR/EC) 5 mg PO ONCE Qty: 4 RF: 0 Discharge Instructions Instructions: Colorectal Polyps (GEN) Additional Instructions: Findings: 4 polyps Follow up: 5 years Please call if you develop: fevers >101.5 Nausea or Vomiting Abdominal pain that is not transient Rectal bleeding that is more then a tbsp A hard abdomen and inability to pass gas DAY SURGERY UNIT POST ENDOSCOPY INSTRUCTIONS Instructions for everyone who is given Anesthesia: For your safety, please do the following for the next 24 Hours: a. Do not drive or operate dangerous equipment b. Do not drink alcohol beverages or use any recreational drugs for the first 24 hours or while taking pain medications. The medications in your body may have a reaction that can be dangerous. c. Do not make any important decisions or sign any important papers 1. Generally there are no restrictions on your activity after a day or so has gone by, but you may feel a bit fatigued for a few days. 2. After you arrive home you may have a light meal and return to a normal diet as you can tolerate it without feeling sick to your stomach. 3. After surgery, you may feel pain or discomfort. This should be only transient, but if it persists please contact your doctor. 4. If there are any questions regarding the findings of your procedure, please feel free to contact your doctor. 6. If you are unable to contact your doctor with a problem, contact the hospital at [phone]. 7. Continue all your regular medications unless directed otherwise. I understand the above instructions and have no questions. Signature of Patient or Responsible Adult Escort Date/Time Name of Responsible Adult Escort Signature of Nurse Date/Time Activity:: Activity as Tolerated Diet:: As Tolerated Discharge Orders Discharge Orders: Discharge Order (Routine); Ordered 12/13/20 Ordered By: Sherly Lara
--- NOTE | 2020-12-13 09:03 | W.ANESPRE ---
General Info Date of Service Date Performed: 12/13/20 Height: 5 ft 11 in Weight: 87.997 kg Body Mass Index (BMI): 27.0 Surgical Procedure: Operation Date: 12/13/20 09:50 Proposed Procedures Side Surgeon rajni Lara MD Meds Allergies and Home Medications Allergies Allergy/AdvReac Type Severity Reaction Status Date / Time codeine [Codeine] Allergy Intermediate ITCHING Verified 12/13/20 09:33 Home Medication Medication Instructions Recorded Cosopt Eye Drops 1 drp OU BID drp 10/04/12 latanoprost [Xalatan] 1 drp OU DAILY drp 10/04/12 docusate sodium [Colace] 2 tab PO DAILY 10/17/17 sennosides [senna] 2 tab-cap PO DAILY tab-cap 10/17/17 aspirin 81 mg tablet,delayed 81 mg PO DAILY 02/18/18 release omega-3 fatty acids 1,250 mg 1,280 mg PO TID cap 02/18/18 capsule Stelara 45 mg SUBCUT Q12W 08/21/18 acetaminophen 325 mg capsule 650 mg PO QID PRN cap 10/03/18 brimonidine 0.1 % eye drops 1 drp OP DAILY ml 10/03/18 nitroglycerin 0.4 mg sublingual 0.4 mg BUCCAL ONCE #60 tab 07/28/19 tablet pantoprazole 40 mg tablet,delayed 40 mg PO DAILY #90 tab-cap 12/10/19 release acyclovir 400 mg tablet 400 mg PO Q4H PRN #20 tab 01/09/20 trazodone 150 mg tablet 150 mg PO QHS #30 tab 09/06/20 levothyroxine 75 mcg tablet 75 mcg PO DAILY #90 tab-cap 09/08/20 pravastatin 80 mg tablet 80 mg PO DAILY #90 tab-cap 11/25/20 bisacodyl 5 mg tablet,delayed 5 mg PO ONCE #4 tab 12/03/20 release polyethylene glycol 3350 17 238 g PO ONCE #238 g 12/03/20 gram/dose oral powder Current Visit Medications: Current Medications Generic Name Dose Route Start Last Admin Trade Name Freq PRN Reason Stop Dose Admin Hyoscyamine Sulfate 0.125 mg 12/13/20 06:47 Hyoscyamine 0.125 Mg Sl/Oral/Chew SL DIRECTED PRN Ringer's Solution 1,000 mls @ 80 mls/hr 12/13/20 06:00 IV 01/09/21 23:59 [facility] IV Miscellaneous Supplies 1 each 12/13/20 06:00 Iv Access IV 01/09/21 23:59 DIRECTED RICHA Ondansetron HCl 4 mg 12/13/20 06:47 Ondansetron 4 Mg/2 Ml Vial IVP Q4H PRN PRN Nausea / Vomiting Sodium Chloride 0 ml 12/13/20 06:00 Normal Saline Flush 10 Ml Syr IV 01/09/21 23:59 PRN PRN Sodium Chloride 0 ml 12/13/20 06:00 Normal Saline 10 Ml Vial IJ 01/09/21 23:59 DIRECTED PRN Sterile Water 0 ml 12/13/20 06:00 Water,Injection,Sterile 10 Ml Vial IJ 01/09/21 23:59 DIRECTED PRN PFSH Active Problems Active Problems: Problem Status Onset Code Actinic keratosis 11/03/13 L57.0 Essential hypertension 04/08/13 I10 Glaucoma 04/09/13 H40.9 Hypertrophy of inferior nasal turbinate J34.3 Deviated nasal septum J34.2 Nasal valve collapse J34.89 Hearing loss H91.90 Hemochromatosis 10/08/13 E83.119 Hypothyroidism 04/09/13 E03.9 Psoriasis 11/03/13 L40.9 Peripheral vascular disease 04/09/13 I73.9 Melanoma of nose 11/03/13 C43.31 Gastroesophageal reflux disease 04/09/13 K21.9 Cirrhosis of liver K74.60 3-vessel coronary artery disease 01/11/15 I25.10 Colon adenoma D12.6 Hyperlipidemia E78.5 Medical History Medical History 3-vessel coronary artery disease (01/11/15) LAD, LCX, RCA stents x 20 February 2015 Sees [facility] [place] yearly Cirrhosis of liver 07/2020 US-IMPRESSION: Mildly enlarged liver. Focal liver lesions seen previously are not demonstrated on today's exam. 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 Hearing loss Hemangioma of liver (04/09/13) saw Gastro [facility] [place]-not problematic Hemochromatosis (10/08/13) History of tobacco use (10/07/12) 40 pack year hist Hx of coronary artery disease 3 stents Hx of glaucoma Hx of Guillain-Mission syndrome x2 episodes, as a child, 2018requiring months of rehab hospital stay resulting in deconditioned state Hx of hearing loss Bilateral hearing aids Hx of peripheral vascular disease LLE stent Hx of psoriasis Hyperlipidemia Hypertension states reolved after gbs, on no meds with bp110/70-75 Hypertrophy of inferior nasal turbinate plans to have surgery fall 2019 Hypothyroidism (04/09/13) Loss of perception for taste Melanoma of nose (11/03/13) Dr. Brewster, sees Dr Cote & Dr. Bernardo [facility] yearly Nasal valve collapse SILVANA (obstructive sleep apnea) no longer uses CPAP Peripheral vascular disease (04/09/13) stent left leg Psoriasis (11/03/13) Stable on Stelara. Tinnitus Surgical History Surgical History Excision, Skin Mass [facility]-MELANOMA EXCISION AND RECONSTRUCTION History of cataract surgery History of coronary artery stent placement 4 stents drug [id number] History of esophagogastroduodenoscopy (EGD) regular egdq 6months to monitor cirrhosis hx Hx of tracheostomy x 2 MOHS 11/2013 Status post de Quervain's release surgery R side Tobacco Smoking/Tobacco Use Status: Former Tobacco Use Tobacco: How many years used: 35 Passive smoking exposure: Yes Second hand exposure: Yes Alcohol Alcohol Intake: current Alcohol intake frequency: holidays/special occasions only Alcohol type: beer and wine Details: abstinent since 2011 Substance Use Substance use: Never Substance use type: does not use Vital Signs and Lab Results Lab Results Blood Type / Crossmatch: No Data to Display Complete Blood Count: No Data to Display Complete Metabolic Panel: No Data to Display Liver Function Panel: No Data to Display Coagulation Panel: No Data to Display Cardiac Panel: No Data to Display Arterial Blood Gas: No Data to Display Venous Blood Gas: No Data to Display Pancreas Panel: No Data to Display Thyroid Panel: No Data to Display Infectious Disease: No Data to Display Blood Cultures: No Data to Display Toxicology Panel: No Data to Display Imaging and Studies Imaging and Studies EKG Summary: 2018: NSR. Stress Test Summary: 2015: LVEF 48%, small-moderate moderately intense, fully reversible defect. suggests ischemia in the LAD distribution. Echocardiogram Summary: 2018: LVEF 76% mild septal hypertrophy, hyperdynamic LV. no hemodynamically significant valve lesions. 2015: LVEF 60-65%, Mild-mod MR. Anesthesia Assessment and Plan Anesthesia History Personal History: No History of Anesthesia Complications Family History: No Family History of Anesthesia Complications Exercise Tolerance Exercise Tolerance: Metabolic Equivalents>4 Pertinent Negatives Pertinent Negatives: No Symptoms of GERD, No Major Pulmonary Symptoms or Complaints and No History of CVA/TIA Cardiac & Pulmonary Exam Cardiac Exam: Normal S1/S2 Heart Sounds Pulmonary Exam: Clear Bilateral Breath Sounds Airway Exam Known Difficult Airway: No Mallampati Class: 2 Mouth Opening: Normal (> 3cm) Thyromental Distance: Greater than 3 cm Neck Range of Motion: Full ROM Neck Circumference: Normal Teeth Condition: Normal Dentition Airway Comments: #21 capped Crowns in back ?on my molars? Previously tracked for Galician-Mission Syndrome ASA Classification ASA Score: ASA 3 Emergency Case?: No NPO Status NPO Status: NPO Clears >2 hours, Solids >8 hours Anesthesia Plan Resuscitation Status: Full Code Anesthesia Technique: General Anesthesia Airway Planned: Natural Airway Monitors Used: Standard Monitors Preoperative Comments:: 75 yo male for colo. PMhx guillain-Mission, PAD, GOETZ, recurrent AIDP requiring trach, CAD s/p PCI 2014 MAYNOR to LAD, POBA D1, MAYNOR to pRCA, MAYNOR to mid RCA, Cirrhosis, SILVANA.
[2020-12-13 09:34] VITALS: BP 153/72; PULSE 58; RESP 16; TEMP 36.4; O2SAT 97
[2020-12-13] MEDS: Lactated Ringers 1,000 ML 80 ML IV (09:55)
[2020-12-13 10:09] VITALS: BMI 27.0
--- NOTE | 2020-12-13 10:35 | BOWEL_PTH ---
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
[2020-12-13 10:55] VITALS: BP 116/54; PULSE 53; RESP 16; TEMP 36.5; O2SAT 95
--- NOTE | 2020-12-13 10:57 | W.ANESPOSTOP ---
Postoperative Evaluation Date, Time and Location Date Performed: 12/13/20 Time Performed: 10:57 Patient Location: Day Surgery Unit Vital Signs Most Recent Imported Vital Signs: Most Recent Vital Signs Temp Pulse Resp BP Pulse Ox 36.4 C L 58 L 16 153/72 H 97 12/13/20 09:34 12/13/20 09:34 12/13/20 09:34 12/13/20 09:34 12/13/20 09:34 Most Recent Manually Entered Vital Signs: Adult Blood Pressure: 116/54 Heart Rate: 53 Respirations: 12 Oxygen Saturation (%): 96 Temperature (C): 36.5 C Pain Score (0-10 Scale): 0 Assessment Mental Status: Awake (Alert & Oriented to Patient Baseline) Airway and Respiratory Function: Patent airway with normal (patient baseline) respiratory exam Cardiovascular Function: Hemodynamically Stable Hydration Status: Adequately Hydrated Nausea & Vomiting: No Nausea or Vomiting Pain: Pt. Denies Any Pain Peripheral Nerve Block: Patient did not receive a nerve block
[2020-12-13 10:58] VITALS: BP 116/54; PULSE 53; RESP 12; TEMPC 36.5; O2SAT 96
[2020-12-13 11:26] VITALS: BP 152/73; PULSE 47; RESP 16; TEMP 36.3; O2SAT 99
== END 2020-12-13 12:05 | disposition home or self-care (01) ==
LOC: SUR 09:03
PROVIDERS: PCP Nurse Practitioner; Visit Provider Surgery
PROC: 0DJD8ZZ Inspection of Lower Intestinal Tract, Via Natural or Artificial Opening Endoscopic (ICD-10-PCS; CPT 45378; principal; 2020-12-13 09:45)
DX: Z12.11 Encounter for screening for malignant neoplasm of colon (principal); Z86.010 Personal history of colon polyps; K63.5 Polyp of colon; D12.2 Benign neoplasm of ascending colon; D12.5 Benign neoplasm of sigmoid colon
CPT/HCPCS: 45385; 45380; 88305; J2001

== ENCOUNTER 2021-08-10 02:45 | Outpatient (CLI) | payer MEDICARE, BC, SELFPAY ==
[2021-08-10 14:12] LABS: HCT 45.4 % (40.0-50.0); HGB 15.7 g/dL (13.5-17.5); MCH 32.9 pg (27.0-33.0); MCHC 34.6 % (32.0-36.0); MCV 95.2 fL (80-95); MPV 10.4 fL (8.0-11.0); Platelet Count 186 10^3/uL (130-400); RBC 4.77 10^6/uL (4.36-5.78); RDW 13.2 % (11.8-14.1); RDW-SD 46.5 fL; WBC 6.32 10^3/uL (4.4-10.8)
[2021-08-10 14:23] LABS: Hemoglobin A1C 5.9 % (<5.7)
[2021-08-10 16:44] LABS: ALT 39 U/L (16-63); AST 27 U/L (15-37); Alkaline Phosphatase 62 U/L (46-116); Bilirubin, Total 0.5 mg/dL (0.2-1.0); Calculated LDL 113 mg/dL (<100); Cholesterol 197 mg/dL (<200); HDL Cholesterol 45 mg/dL (40-60); TSH 1.29 uIU/mL (0.36-3.74); Triglyceride 195 mg/dL (<150)
[2021-08-10 16:54] LABS: Bilirubin, Direct 0.1 mg/dL (0.0-0.2)
== END 2021-08-10 02:46 | disposition home or self-care (01) ==
LOC: LBO 02:45
PROVIDERS: PCP Nurse Practitioner; Visit Provider Nurse Practitioner
DX: E83.119 Hemochromatosis, unspecified (principal); K74.60 Unspecified cirrhosis of liver; E03.9 Hypothyroidism, unspecified
CPT/HCPCS: 36415; 80061; 80076; 85027; 83036; 84443

== ENCOUNTER 2021-08-16 10:00 | Outpatient (RCR) | payer SELFPAY ==
[2021-07-19 10:07] VITALS: BP 146/68; PULSE 45
[2021-07-21 09:50] VITALS: BP 176/47; PULSE 51
[2021-08-16 09:54] VITALS: BP 146/68; PULSE 43
[2021-08-18 11:46] VITALS: BP 145/69; PULSE 46
== END 2021-08-18 23:59 | disposition home or self-care (01) ==
LOC: CR 10:00
PROVIDERS: PCP Nurse Practitioner; Visit Provider Family Medicine
DX: R69 Illness, unspecified (principal)

== ENCOUNTER 2021-09-15 10:00 | Outpatient (RCR) | payer SELFPAY ==
[2021-08-19 00:07] VITALS: BP 145/69; PULSE 46
[2021-08-23 09:41] VITALS: BP 122/68; PULSE 42
[2021-08-25 09:38] VITALS: BP 143/71; PULSE 49
[2021-08-30 09:37] VITALS: BP 135/54; PULSE 45
[2021-09-01 10:27] VITALS: BP 125/66; PULSE 41; O2SAT 97
[2021-09-06 09:40] VITALS: BP 157/72; PULSE 40
[2021-09-08 10:17] VITALS: BP 120/59; PULSE 45; O2SAT 95
[2021-09-15 09:38] VITALS: BP 135/64; PULSE 48
== END 2021-09-17 23:59 | disposition home or self-care (01) ==
LOC: CR 10:00
PROVIDERS: PCP Nurse Practitioner; Visit Provider Internal Medicine Cardiovascular Disease
DX: R69 Illness, unspecified (principal)

== ENCOUNTER 2021-10-18 09:45 | Outpatient (RCR) | payer SELFPAY ==
[2021-09-18 00:13] VITALS: BP 135/64; PULSE 48
[2021-09-20 10:04] VITALS: BP 145/62; PULSE 46
[2021-09-22 09:36] VITALS: BP 152/67; PULSE 47
[2021-09-27 10:00] VITALS: BP 139/67; PULSE 43
[2021-09-29 10:00] VITALS: BP 126/64; PULSE 44
[2021-10-04 10:14] VITALS: BP 148/73; PULSE 49
[2021-10-11 10:19] VITALS: BP 144/76; PULSE 47
[2021-10-13 09:34] VITALS: BP 121/63; PULSE 49
[2021-10-18 09:32] VITALS: BP 146/73; PULSE 43
== END 2021-10-18 23:59 | disposition home or self-care (01) ==
LOC: CR 09:45
PROVIDERS: PCP Nurse Practitioner; Visit Provider Internal Medicine Cardiovascular Disease
DX: R69 Illness, unspecified (principal)

== ENCOUNTER 2021-11-03 10:00 | Outpatient (RCR) | payer SELFPAY ==
[2021-10-19 00:15] VITALS: BP 146/73; PULSE 43
[2021-10-20 09:23] VITALS: BP 157/76; PULSE 45
[2021-10-27 10:03] VITALS: BP 170/70; PULSE 41
[2021-11-01 09:33] VITALS: BP 127/63; PULSE 46
[2021-11-03 10:10] VITALS: BP 129/63; PULSE 42
== END 2021-11-17 23:59 | disposition home or self-care (01) ==
LOC: CR 10:00
PROVIDERS: PCP Nurse Practitioner; Visit Provider Internal Medicine Cardiovascular Disease
DX: R69 Illness, unspecified (principal)

== ENCOUNTER 2021-11-14 13:23 | Outpatient (CLI) | payer MEDICARE, BC, SELFPAY ==
[2021-11-14 14:19] LABS: CREATININE 1.1 mg/dL (0.70-1.30)
== END 2021-11-14 13:24 | disposition home or self-care (01) ==
LOC: LBO 13:26
PROVIDERS: PCP Nurse Practitioner; Visit Provider Nurse Practitioner Family
DX: U07.1 COVID-19 (principal)
CPT/HCPCS: 36415; 82565

== ENCOUNTER 2022-01-17 09:51 | Outpatient (RCR) | payer SELFPAY ==
[2021-12-20 10:24] VITALS: BP 189/83; PULSE 51
[2021-12-29 09:31] VITALS: BP 148/85; PULSE 55
[2022-01-03 09:43] VITALS: BP 129/75; PULSE 49
[2022-01-10 09:50] VITALS: BP 147/77; PULSE 45
[2022-01-12 09:57] VITALS: BP 145/75; PULSE 44
[2022-01-17 09:49] VITALS: BP 145/77; PULSE 47
== END 2022-01-18 23:59 | disposition home or self-care (01) ==
LOC: CR 09:51
PROVIDERS: PCP Nurse Practitioner; Visit Provider Internal Medicine Cardiovascular Disease
DX: R69 Illness, unspecified (principal)

== ENCOUNTER 2022-02-16 09:42 | Outpatient (RCR) | payer SELFPAY ==
[2022-01-19 00:01] VITALS: BP 145/77; PULSE 47
[2022-01-19 10:00] VITALS: BP 127/58; PULSE 39
[2022-01-24 09:50] VITALS: BP 145/78; PULSE 42
[2022-01-26 09:53] VITALS: BP 159/60; PULSE 50
[2022-02-07 09:56] VITALS: BP 146/82; PULSE 58
[2022-02-09 09:53] VITALS: BP 152/69; PULSE 41
[2022-02-16 09:42] VITALS: BP 144/69; PULSE 44
== END 2022-02-17 23:59 | disposition home or self-care (01) ==
LOC: CR 09:42
PROVIDERS: PCP Nurse Practitioner; Visit Provider Internal Medicine Cardiovascular Disease
DX: R69 Illness, unspecified (principal)

== ENCOUNTER 2022-03-16 09:41 | Outpatient (RCR) | payer SELFPAY ==
[2022-02-18 00:03] VITALS: BP 144/69; PULSE 44
[2022-02-21 09:53] VITALS: BP 148/69; PULSE 47
[2022-02-23 09:41] VITALS: BP 131/62; PULSE 43
[2022-02-28 09:46] VITALS: BP 158/76; PULSE 48
[2022-03-07 09:46] VITALS: BP 174/70; PULSE 45
[2022-03-09 10:32] VITALS: BP 164/74; PULSE 45
[2022-03-14 09:42] VITALS: BP 135/74; PULSE 46
[2022-03-16 09:41] VITALS: BP 143/72; PULSE 44
== END 2022-03-20 23:59 | disposition home or self-care (01) ==
LOC: CR 09:41
PROVIDERS: PCP Nurse Practitioner; Visit Provider Internal Medicine Cardiovascular Disease
DX: R69 Illness, unspecified (principal)
CPT/HCPCS: S9472

== ENCOUNTER 2022-03-17 08:53 | Outpatient (CLI) | payer MEDICARE, BC, SELFPAY ==
--- NOTE | 2022-03-17 08:45 | RT.EKG_ITS ---
APPROVED REPORT Exam: Resting ECG Reason for Exam: ASCVD Patient Location: O HR:50 bpm ECG Measurements Heart Rate 50 AXIS DC 230 P -29 QRSd 92 QRS -44 QT 447 T 31 QTc 408 Conclusion Sinus rhythm...normal P axis, V-rate 50- 99 Prolonged DC interval...DC >220, V-rate 50- 90 Abnormal R-wave progression, late transition...QRS area<0 in V5/V6 Inferior infarct, old...Q >35mS, II III aVF
== END 2022-03-17 08:54 | disposition home or self-care (01) ==
LOC: DI.CARD 08:54
PROVIDERS: PCP Nurse Practitioner; Visit Provider Internal Medicine Cardiovascular Disease
DX: I25.10 Atherosclerotic heart disease of native coronary artery without angina pectoris (principal); R94.31 Abnormal electrocardiogram [ECG] [EKG]; I25.2 Old myocardial infarction
CPT/HCPCS: 93010

== ENCOUNTER → 2022-03-17 13:52 | Outpatient (BNVA) | payer MEDICARE, BC, SELFPAY | PROVIDERS: PCP Nurse Practitioner; Referring Provider Nurse Practitioner; Visit Provider Internal Medicine Cardiovascular Disease | DX: Z95.5 Presence of coronary angioplasty implant and graft (principal); I25.10 Atherosclerotic heart disease of native coronary artery without angina pectoris; I10 Essential (primary) hypertension; E78.5 Hyperlipidemia, unspecified | CPT/HCPCS: 93005; 99202; 99214 ==

== ENCOUNTER 2022-04-18 09:38 | Outpatient (RCR) | payer SELFPAY ==
[2022-03-21 00:15] VITALS: BP 143/72; PULSE 44
[2022-03-21 11:39] VITALS: BP 150/73; PULSE 47
[2022-03-23 09:50] VITALS: BP 137/63; PULSE 48
[2022-04-18 09:39] VITALS: BP 158/77; PULSE 50
== END 2022-04-19 23:59 | disposition home or self-care (01) ==
LOC: CR 09:38
PROVIDERS: PCP Nurse Practitioner Family; Visit Provider Internal Medicine Cardiovascular Disease
DX: R69 Illness, unspecified (principal)

== ENCOUNTER 2022-05-02 09:52 | Outpatient (RCR) | payer SELFPAY ==
[2022-04-20 00:17] VITALS: BP 158/77; PULSE 50
[2022-04-20 09:46] VITALS: BP 166/71; PULSE 43
[2022-05-02 09:54] VITALS: BP 198/80; PULSE 51
[2022-05-02 10:00] VITALS: BP 204/78
== END 2022-05-20 23:59 | disposition home or self-care (01) ==
LOC: CR 09:52
PROVIDERS: PCP Nurse Practitioner Family; Visit Provider Internal Medicine Cardiovascular Disease
DX: R69 Illness, unspecified (principal)

== ENCOUNTER 2022-05-04 02:53 | Outpatient (CLI) | payer MEDICARE, BC, SELFPAY ==
[2022-05-04 22:42] LABS: PSA, Screening 0.5 ng/mL (<=6.5)
== END 2022-05-04 02:54 | disposition home or self-care (01) ==
LOC: LBO 02:53
PROVIDERS: Nurse Practitioner Family; PCP Nurse Practitioner Family; Visit Provider Nurse Practitioner Family
DX: N40.1 Benign prostatic hyperplasia with lower urinary tract symptoms (principal); R35.1 Nocturia; Z12.5 Encounter for screening for malignant neoplasm of prostate
CPT/HCPCS: 36415; 84153

== ENCOUNTER → 2022-05-08 10:26 | Outpatient (BNVA) | payer MEDICARE, BC, SELFPAY | PROVIDERS: PCP Nurse Practitioner Family; Referring Provider Nurse Practitioner; Visit Provider Nurse Practitioner Gerontology | DX: N40.1 Benign prostatic hyperplasia with lower urinary tract symptoms (principal); R35.1 Nocturia | CPT/HCPCS: 51798; 81003; 99215 ==

== ENCOUNTER 2022-06-20 09:45 | Outpatient (RCR) | payer SELFPAY ==
[2022-05-21 00:21] VITALS: BP 204/78; PULSE 51
[2022-05-23 10:01] VITALS: BP 177/77; PULSE 53
[2022-05-25 10:22] VITALS: BP 168/89; PULSE 51
[2022-05-30 10:08] VITALS: BP 136/64; PULSE 43
[2022-06-01 10:51] VITALS: BP 134/57; PULSE 39
[2022-06-06 10:00] VITALS: BP 139/65; PULSE 43
[2022-06-08 09:46] VITALS: BP 135/67; PULSE 42
[2022-06-13 11:06] VITALS: BP 123/66; PULSE 44
[2022-06-20 13:22] VITALS: BP 154/69; PULSE 43
== END 2022-06-20 23:59 | disposition home or self-care (01) ==
LOC: CR 09:45
PROVIDERS: PCP Family Medicine; Visit Provider Internal Medicine Cardiovascular Disease
DX: R69 Illness, unspecified (principal)

== ENCOUNTER 2022-07-10 09:35 | Outpatient (CLI) | payer MEDICARE, BC, SELFPAY ==
--- NOTE | 2022-07-10 08:30 | DI.RAD_ITS ---
Exam(s) XR WRIST RT COMPLETE EXAM: XR WRIST RT COMPLETE CLINICAL HISTORY: Rt thumb pain, ?CMC OA. TECHNIQUE: 2D digital imaging was performed. Three views. COMPARISON: No exams were available for comparison FINDINGS: BONES: No acute fracture is present. No bony destructive lesion is seen. JOINTS: The carpal bones are normally aligned. There are [id number]. Degenerative changes ar e also seen at the scaphoid trapezium joint. Degenerative changes at the 1st carpal metacarpal joint SOFT TISSUE: Normal. IMPRESSION: Degenerative changes greatest at the 1st carpal metacarpal joint. DATA REPOSITORY: RADIATION DOSE DELIVERED:
--- NOTE | 2022-07-10 08:53 | DI.RAD_ITS ---
Exam(s) XR WRIST LT COMPLETE EXAM: XR WRIST LT COMPLETE CLINICAL HISTORY: eval L thumb pain, ?CMC OA. TECHNIQUE: 2D digital imaging was performed. Three views. COMPARISON: CR XR WRIST RT COMPLETE from 07/10/2022 FINDINGS: BONES: No acute fracture is present. No bony destructive lesion is seen. JOINTS: The carpal bones are normally aligned. There are [id number] degenerative changes at the 1st carpal metacarpal joint. Minimal degenera tive changes elsewhere. SOFT TISSUE: Normal. IMPRESSION: Degenerative changes at the 1st carpal metacarpal joint. DATA REPOSITORY: RADIATION DOSE DELIVERED:
== END 2022-07-10 09:36 | disposition home or self-care (01) ==
LOC: DIORS 09:35
PROVIDERS: PCP Family Medicine; Referring Provider Family Medicine; Visit Provider Student in an Organized Health Care Education/Training Program
DX: M18.12 Unilateral primary osteoarthritis of first carpometacarpal joint, left hand (principal); M18.11 Unilateral primary osteoarthritis of first carpometacarpal joint, right hand
CPT/HCPCS: 99213; 73110

== ENCOUNTER 2022-07-18 09:47 | Outpatient (RCR) | payer SELFPAY ==
[2022-06-27 13:55] VITALS: BP 138/68; PULSE 42
[2022-07-04 09:40] VITALS: BP 124/64; PULSE 41
[2022-07-06 09:34] VITALS: BP 116/60; PULSE 43
[2022-07-18 09:44] VITALS: BP 130/59; PULSE 41
== END 2022-07-18 23:59 | disposition home or self-care (01) ==
LOC: CR 09:47
PROVIDERS: PCP Family Medicine; Visit Provider Internal Medicine Cardiovascular Disease
DX: R69 Illness, unspecified (principal)

== ENCOUNTER 2022-08-10 04:15 | Outpatient (CLI) | payer MEDICARE, BC, SELFPAY ==
[2022-08-10 10:07] LABS: Anion Gap 5.9 mmol/L (3-11); BUN 17 mg/dL (7-18); CO2 29.1 mmol/L (21.0-32.0); CREATININE 1.1 mg/dL (0.70-1.30); Calcium 8.9 mg/dL (8.5-10.1); Chloride 105 mmol/L (98-107); Estimated GFR 69.14 (mL/min/1.73m2); Glucose 112 mg/dL (74-106); Potassium 3.9 mmol/L (3.5-5.1); Sodium 140 mmol/L (136-145)
== END 2022-08-10 04:16 | disposition home or self-care (01) ==
LOC: LBO 04:15
PROVIDERS: Nurse Practitioner Family; PCP Family Medicine; Visit Provider Family Medicine
DX: I10 Essential (primary) hypertension (principal)
CPT/HCPCS: 36415; 80048

== ENCOUNTER 2022-08-15 09:54 | Outpatient (RCR) | payer SELFPAY ==
[2022-07-19 00:17] VITALS: BP 130/59; PULSE 41
[2022-07-25 09:49] VITALS: BP 131/65; PULSE 45
[2022-08-03 11:23] VITALS: BP 133/62; PULSE 44
[2022-08-08 10:21] VITALS: BP 107/59; PULSE 46
[2022-08-10 10:15] VITALS: BP 104/54; PULSE 43
[2022-08-15 09:49] VITALS: BP 105/54; PULSE 36
== END 2022-08-18 23:59 | disposition home or self-care (01) ==
LOC: CR 09:54
PROVIDERS: PCP Family Medicine; Visit Provider Internal Medicine Cardiovascular Disease

== ENCOUNTER 2022-09-14 09:41 | Outpatient (RCR) | payer SELFPAY ==
[2022-08-19 00:09] VITALS: BP 105/54; PULSE 36
[2022-08-31 09:49] VITALS: BP 109/55; PULSE 42
[2022-09-05 10:10] VITALS: BP 115/58; PULSE 42
[2022-09-07 10:00] VITALS: BP 142/68; PULSE 42
[2022-09-12 10:12] VITALS: BP 123/57; PULSE 38
[2022-09-14 09:51] VITALS: BP 113/58; PULSE 40
== END 2022-09-17 23:59 | disposition home or self-care (01) ==
LOC: CR 09:41
PROVIDERS: PCP Family Medicine; Visit Provider Internal Medicine Cardiovascular Disease
DX: R69 Illness, unspecified (principal)

== ENCOUNTER 2022-10-05 09:59 | Outpatient (RCR) | payer SELFPAY ==
[2022-09-18 00:16] VITALS: BP 113/58; PULSE 40
[2022-09-19 10:27] VITALS: BP 121/61; PULSE 44
[2022-09-21 09:58] VITALS: BP 114/52; PULSE 44
[2022-09-26 10:05] VITALS: BP 110/49; PULSE 43
[2022-10-03 10:04] VITALS: BP 126/64; PULSE 43
[2022-10-05 10:24] VITALS: BP 104/55; PULSE 41
== END 2022-10-18 23:59 | disposition home or self-care (01) ==
LOC: CR 09:59
PROVIDERS: PCP Family Medicine; Visit Provider Internal Medicine Cardiovascular Disease

== ENCOUNTER 2022-11-09 09:53 | Outpatient (RCR) | payer SELFPAY ==
[2022-10-19 00:07] VITALS: BP 104/55; PULSE 41
[2022-10-24 09:46] VITALS: BP 126/63; PULSE 43
[2022-10-26 10:07] VITALS: BP 134/65; PULSE 39
[2022-10-31 10:31] VITALS: BP 150/65; PULSE 41
[2022-11-02 09:51] VITALS: BP 123/61; PULSE 42
[2022-11-07 09:52] VITALS: BP 114/58; PULSE 73
[2022-11-09 10:00] VITALS: BP 111/60; PULSE 51
== END 2022-11-17 23:59 | disposition home or self-care (01) ==
LOC: CR 09:53
PROVIDERS: PCP Family Medicine; Visit Provider Internal Medicine Cardiovascular Disease
DX: R69 Illness, unspecified (principal)

== ENCOUNTER 2022-12-12 09:51 | Outpatient (RCR) | payer SELFPAY ==
[2022-11-18 00:14] VITALS: BP 111/60; PULSE 51
[2022-11-23 10:19] VITALS: BP 94/58; PULSE 49
[2022-12-05 10:09] VITALS: BP 99/54; PULSE 49
[2022-12-07 09:49] VITALS: BP 133/84; PULSE 66
[2022-12-12 09:58] VITALS: BP 108/61; PULSE 44
== END 2022-12-18 23:59 | disposition home or self-care (01) ==
LOC: CR 09:51
PROVIDERS: PCP Family Medicine; Visit Provider Internal Medicine Cardiovascular Disease
DX: R69 Illness, unspecified (principal)

== ENCOUNTER 2023-01-18 09:59 | Outpatient (RCR) | payer SELFPAY ==
[2022-12-19 00:14] VITALS: BP 108/61; PULSE 44
[2022-12-19 10:11] VITALS: BP 93/51; PULSE 43
[2022-12-26 09:46] VITALS: BP 130/64; PULSE 44
[2022-12-28 09:57] VITALS: BP 141/69; PULSE 45
[2023-01-09 09:51] VITALS: BP 117/54; PULSE 43
== END 2023-01-18 23:59 | disposition home or self-care (01) ==
LOC: CR 09:59
PROVIDERS: PCP Family Medicine; Visit Provider Internal Medicine Cardiovascular Disease
DX: R69 Illness, unspecified (principal)

== ENCOUNTER 2023-02-15 11:03 | Outpatient (RCR) | payer SELFPAY ==
[2023-01-19 00:07] VITALS: BP 117/54; PULSE 43
[2023-02-13 10:05] VITALS: BP 110/62; PULSE 45
[2023-02-15 10:13] VITALS: BP 149/87; PULSE 48
[2023-02-22 10:05] VITALS: BP 102/64; PULSE 44
== END 2023-02-17 23:59 | disposition home or self-care (01) ==
LOC: CR 11:03
PROVIDERS: PCP Family Medicine; Visit Provider Internal Medicine Cardiovascular Disease
DX: R69 Illness, unspecified (principal)

== ENCOUNTER → 2023-02-23 00:52 | Outpatient (CLI) | payer MEDICARE, BC, SELFPAY ==
[2023-02-23 12:27] LABS: CREATININE 1.1 mg/dL (0.70-1.30); Estimated GFR 69.14 (mL/min/1.73m2)
[2023-02-23] MEDS: Normal Saline - Diluent 50 ML VIAL IJ (12:49)
[2023-02-23] MEDS: Omnipaque 350 MG/ML 100 ML BTL IJ (12:50)
--- NOTE | 2023-02-23 12:55 | DI.CT_ITS ---
Exam(s) CT ABD AORTA CTA W RUNOFF EXAM: CT ABD AORTA CTA W RUNOFF CLINICAL HISTORY: bud hamstring pain; claudication in nature,m79.604,m79.605. TECHNIQUE: Imaging Protocol: Axial CT angiography was performed with multi-slice acquisition and mu lti-planar and/or 3D reconstructions. CONTRAST MATERIAL: Intravenous: Omnipaque 350 Contrast volume:structured data in ml Contrast route:I V - Oral: / no COMPARISON: CT UPPER ABD WITH CONTRAST (P) from 04/13/[address] CHEST WO from 03/05/2020 FINDINGS: Vascular Structures: Lower chest: Mild left atrial and left ventricular dilatation. No pericardial effusion. Coronary ar elizabet calcifications. Lung bases clear. Abdomen: Celiac Ekron/SMA: Patent Renal Arteries: Patent. There is a single renal artery perfusing each kidney. Aorta: No aneurysm. No dissection. Heavily calcified. Some luminal narrowing distally. Pelvis: Common iliac Arteries: Heavily calcified. Left: Heavily calcified at origin with approximately 50 pe rcent stenosis proximal to the stent. Right: Severe stenosis at origin. External iliac arteries: Left: Heavily calcified proximally with approximately 50 percent stenosis. Patent distally. Right: Calcification causing mild stenosis. Internal iliac arteries: Heavily calcified. Severe stenosis bilat. Common Femoral Arteries: Mild stenosis at the bifurcations. Lower extremities: Right: Common Femoral: Multifocal calcification. Mild stenosis. Superficial Femoral: Multifocal calcification. Mild stenosis. Popliteal: Multifocal calcification causing mild stenosis. Knee Trifurcation: Patent Posterior Tibial: Patent. Left: Common Femoral: Scattered calcification. Multifocal bbfc-fz-gdukvpgd stenosis. Superficial Femoral: Multifocal calcific plaque with multi focal severe stenosis in the midportion. Also area of severe stenosis in the distal femoral artery. Popliteal: Calcification but no significant stenosis. Knee Trifurcation: Patent Posterior Tibial: Patent Soft Tissues: Liver: Normal density. No measurable mass. Gallbladder and biliary tract: No radiodense calculus or dilation. Pancreas: Normal density, no abnormal calcifications or inflammatory process. Spleen: Normal. Kidneys: Normal size, contour and axis. No radiodense stones or obstructive uropathy. No masses seen. Adrenal glands: No masses seen. Bladder: Nearly empty. Bowel: No obstruction or bowel wall thickening. Peritoneal cavity: No ascites, collection or mesenteric inflammatory response. Bones: Syndesmophyte formation along lower thoracic spine. No compression fractures. No suspicious lesions. Small left fatty containing in glial hernia. IMPRESSION: Extensive calcification of the aorta, iliac and lower extremity vessels. Severe stenosis at the orig in of the right common carotid artery. Severe stenosis bilateral internal iliac arteries. Multifocal plaque in the femoral arteries with severe stenosis in the left mid and distal portions. RADIATION DOSE DELIVERED: 1,208.52mGy.cm Total DLP DATA REPOSITORY: All CT scans at this facility are submitted to the National Radiology Data Registry (NRDR) Dose Index Registry (DIR) with the [employer] ([employer]). RADIATION OPTIMIZATION: All CT scans at this facility use at least one of these dose optimization te chniques: automated exposure control; mA and/or kV adjustment per patient size (includes targeted exa ms where dose is matched to clinical indication); or iterative reconstruction.
== END ==
PROVIDERS: PCP Family Medicine; Visit Provider Family Medicine
DX: I65.21 Occlusion and stenosis of right carotid artery; M79.604 Pain in right leg; M79.605 Pain in left leg
CPT/HCPCS: 75635; 82565; J3490

== ENCOUNTER → 2023-03-16 13:24 | Outpatient (BNVA) | payer MEDICARE, BC, SELFPAY | PROVIDERS: PCP Family Medicine; Referring Provider Nurse Practitioner; Visit Provider Internal Medicine Cardiovascular Disease | DX: I73.9 Peripheral vascular disease, unspecified (principal); Z86.79 Personal history of other diseases of the circulatory system; I25.10 Atherosclerotic heart disease of native coronary artery without angina pectoris; I10 Essential (primary) hypertension; E78.5 Hyperlipidemia, unspecified | CPT/HCPCS: 99213 ==

== ENCOUNTER 2023-03-20 09:55 | Outpatient (RCR) | payer SELFPAY ==
[2023-02-18 00:04] VITALS: BP 149/87; PULSE 48
[2023-02-20 10:21] VITALS: BP 137/68; PULSE 45
[2023-03-06 10:12] VITALS: BP 160/70; PULSE 40
[2023-03-13 10:48] VITALS: BP 156/71; PULSE 39
[2023-03-15 10:35] VITALS: BP 121/64; PULSE 43
[2023-03-20 10:49] VITALS: BP 142/69; PULSE 44
== END 2023-03-20 23:59 | disposition home or self-care (01) ==
LOC: CR 09:55
PROVIDERS: PCP Family Medicine; Visit Provider Internal Medicine Cardiovascular Disease
DX: R69 Illness, unspecified (principal)

== ENCOUNTER 2023-04-24 13:36 | Emergency (ER) | payer MEDICARE, BC, SELFPAY ==
[2023-04-24 13:40] VITALS: BP 184/76; PULSE 59; RESP 16; TEMP 36.7; O2SAT 95
--- NOTE | 2023-04-24 13:45 | DI.CT_ITS ---
Exam(s) CT LUMBAR SPINE WO EXAM: CT LUMBAR SPINE WO CLINICAL HISTORY: fall 11 days ago, lower back pain. TECHNIQUE: Imaging Protocol: Axial computed tomography images with coronal and sagittal reformatted images were created and reviewed COMPARISON: CT CT ABD AORTA CTA W RUNOFF from 02/23/2023 FINDINGS: Bones: There is an acute compression fracture of the L3 vertebral body superior endplate with approx imately 20 percent height loss. Fracture lines extend to the inferior endplate level. No prominent posterior displacement of the posterior cortex of this fracture vertebral body.. Fracture lines do n ot appear to extend into the pedicles. Transverse processes are intact. Spinous process is an alverto a intact. No obvious disc herniation at this level. Central canal dimensions are lower normal. No other fract ures identified. No osseous lytic is. PARASPINAL SOFT TISSUES: Visualized paraspinal tissues appear unremarkable. Endovascular stent is noted in the left common iliac artery. IMPRESSION: 1. 20 percent compression fracture of superior endplate of L3 vertebral body. No retropulsion. No a cute canal compromise. No facet joint malalignment. Called by myself to ER physician RADIATION DOSE DELIVERED: Total DLP DATA REPOSITORY: All CT scans at this facility are submitted to the National Radiology Data Registry (NRDR) Dose Index Registry (DIR) with the [employer] ([employer]). RADIATION OPTIMIZATION: All CT scans at this facility use at least one of these dose optimization te chniques: automated exposure control; mA and/or kV adjustment per patient size (includes targeted exa ms where dose is matched to clinical indication); or iterative reconstruction.
[2023-04-24] MEDS: Ketorolac 15 MG/ML VIAL IM (14:06)
[2023-04-24] MEDS: Lidocaine 5% Patch 1 PATCH TP (14:06)
[2023-04-24] MEDS: Cyclobenzaprine 10 MG TAB PO (14:06)
--- NOTE | 2023-04-24 17:01 | W.ED.GENAD ---
Discharge Plan Discharge Details Chief Complaint: Nk/Back Pain Primary Care Provider: Juan Antonio De Dios ED Provider: Cam Franks Home Meds and New Rx's Prescriptions: No Action fluoxetine 20 mg capsule 20 mg PO DAILY Qty: 90 3RF levothyroxine [Synthroid] 75 mcg tablet 75 mcg PO DAILY Qty: 90 3RF Rx Instructions: 1 TAB DAILY Lumigan 0.01 % drops 1 drp ophthalmic (eye) QPM Patient Comments: PLACE ONE DROP INTO EACH EYE AT BEDTIME dorzolamide-timolol 22.3-6.8 mg/mL drops 1 drp ophthalmic (eye) BID Patient Comments: INSTILL 1 DROP INTO EACH EYE TWICE A DAY fluorouracil 5 % cream 1 applic topical BID Patient Comments: APPLY TO THE SKIN TWO TIMES A DAY aspirin [Adult Low Dose Aspirin] 81 mg tablet,delayed release (DR/EC) 81 mg PO DAILY omega-3 fatty acids 1,250 mg capsule 3,780 mg PO ONCE trazodone 100 mg tablet 200 mg PO QHS PRN (Reason: sleep) Qty: 180 4RF acyclovir 400 mg tablet 400 mg PO Q4H PRN Qty: 20 5RF Rx Instructions: PRN FOR OUTBREAK pravastatin 80 mg tablet 80 mg PO DAILY Qty: 90 4RF nitroglycerin 0.4 mg tablet, sublingual 0.4 mg Buccal .q 5 min Qty: 25 2RF Rx Instructions: One q 5 mins; repeat x2; if still having pain, call sennosides [senna] 8.6 MG tablet 2 tab-cap PO DAILY docusate sodium [Colace] 100 MG capsule 2 tab PO DAILY brimonidine 0.1 % drops 1 drp OP DAILY Patient Comments: no dose listed.HE lisinopril 5 mg tablet 5 mg PO DAILY Qty: 90 3RF pantoprazole 40 mg tablet,delayed release (DR/EC) 40 mg PO DAILY Qty: 90 3RF sildenafil 100 mg tablet 100 mg PO DAILY PRN (Reason: sexual activity) Qty: 30 2RF Rx Instructions: administer 30 minutes to 4 hours before activity Stelara 45 mg/0.5 mL Syringe 45 mg SUBCUT Q12W Medical Decision Making 77-year-old male mechanical fall from a stooped position slipped backwards on his socks, landed onto buttock and back, pain over the past couple of days, no bowel or bladder issues, ambulatory without assistance, midline lumbar tenderness on palpation without crepitus or deformity, history of remote Guillain-Rooney?. 5-5 strength bilateral lower extremities, sensation intact, hemodynamically stable. Likely contusion with muscular strain lower suspicion for spinal cord impingement or spinal fracture however given age and point tenderness have obtained CT lumbar spine. Analgesia anti-inflammatory administered, disposition pending imaging results. HPI General Date/Time Provider Initiated Documentation: 04/24/23 13:45. HPI Narrative: 77-year-old male history of Guillain-Rooney?, endorses back pain for the past 11 days, was getting up off the ground slipped from a stooped position fell onto his buttock and back. No weakness numbness or bowel or bladder issues. Patient able to ambulate without assistance. Related Data Home Medications Medication Instructions Recorded Confirmed docusate sodium 100 mg capsule 2 tab PO DAILY 10/17/17 04/24/23 (Colace) sennosides 8.6 mg tablet (senna) 2 tab-cap PO DAILY 10/17/17 04/24/23 aspirin 81 mg tablet,delayed 81 mg PO DAILY 02/18/18 04/24/23 release (Adult Low Dose Aspirin) ustekinumab 45 mg/0.5 mL 45 mg subcut Q12W 08/21/18 04/24/23 subcutaneous syringe (Stelara) brimonidine 0.1 % eye drops 1 drp ophthalmic (eye) DAILY 10/03/18 04/24/23 omega-3 fatty acids 1,250 mg 3,780 mg PO ONCE 08/04/21 04/24/23 capsule trazodone 100 mg tablet 200 mg (2 x 100 mg) PO QHS PRN 02/13/22 04/24/23 sleep #180 tabs fluoxetine 20 mg capsule 20 mg PO DAILY #90 caps 07/13/22 04/24/23 levothyroxine 75 mcg tablet 75 mcg PO DAILY #90 tab-caps 07/13/22 04/24/23 (Synthroid) lisinopril 5 mg tablet 5 mg PO DAILY #90 tabs 12/14/22 04/24/23 pantoprazole 40 mg tablet,delayed 40 mg PO DAILY #90 tab-caps 12/18/22 04/24/23 release acyclovir 400 mg tablet 400 mg PO Q4H PRN #20 tabs 02/06/23 04/24/23 nitroglycerin 0.4 mg sublingual 0.4 mg buccal .q 5 min #25 tabs 02/06/23 04/24/23 tablet pravastatin 80 mg tablet 80 mg PO DAILY #90 tab-caps 02/06/23 04/24/23 sildenafil 100 mg tablet 100 mg PO DAILY PRN sexual 03/20/23 04/24/23 activity #30 tabs bimatoprost 0.01 % eye drops 1 drp ophthalmic (eye) QPM 04/18/23 04/24/23 (Lumigan) dorzolamide 22.3 mg-timolol 6.8 1 drp ophthalmic (eye) BID 04/18/23 04/24/23 mg/mL eye drops fluorouracil 5 % topical cream 1 applic topical BID 04/18/23 04/24/23 Previous Rx's Medication Instructions Recorded trazodone 100 mg tablet 200 mg (2 x 100 mg) PO QHS PRN 02/13/22 sleep #180 tabs fluoxetine 20 mg capsule 20 mg PO DAILY #90 caps 07/13/22 levothyroxine 75 mcg tablet 75 mcg PO DAILY #90 tab-caps 07/13/22 (Synthroid) lisinopril 5 mg tablet 5 mg PO DAILY #90 tabs 12/14/22 pantoprazole 40 mg tablet,delayed 40 mg PO DAILY #90 tab-caps 12/18/22 release acyclovir 400 mg tablet 400 mg PO Q4H PRN #20 tabs 02/06/23 nitroglycerin 0.4 mg sublingual 0.4 mg buccal .q 5 min #25 tabs 02/06/23 tablet pravastatin 80 mg tablet 80 mg PO DAILY #90 tab-caps 02/06/23 sildenafil 100 mg tablet 100 mg PO DAILY PRN sexual 03/20/23 activity #30 tabs Allergies Allergy/AdvReac Type Severity Reaction Status Date / Time codeine [Codeine] Allergy Intermediate ITCHING Verified 04/24/23 13:45 General Stated Complaint: Nk/Back Pain JOANIE: 3 Review of Systems Narrative: Review of Systems Constitutional: negative Eyes: negative ENT: negative Cardiovascular: negative Respiratory: negative Gastrointestinal: negative : negative Musculoskeletal: Back pain Skin: negative Neurologic: negative Psych: negative PFSH All Active Problems (Updated 03/12/23 @ 20:30 by Juan Antonio De Dios MD) Leg pain (Acute) Facial lesion (Acute) Strain of hamstring (Acute) Arthritis of carpometacarpal (CMC) joint of right thumb (Acute) Arthritis of carpometacarpal (CMC) joint of left thumb (Acute) Anxiety (Chronic) Prediabetes (Acute) BPH associated with nocturia (Acute) Tubulovillous adenoma (Acute ~11/2020) Actinic keratosis (Acute 11/03/13) [place] [facility] [place] Essential hypertension (Acute 04/08/13) Glaucoma (Acute 04/09/13) Dr Bev Maya Hypertrophy of inferior nasal turbinate (Chronic) postponed surgery fall 2019 Deviated nasal septum (Chronic) sees Cl Salazar- Nasal valve collapse (Acute) Hearing loss (Acute) uses hearing aids Hemochromatosis (Acute 10/08/13) Hypothyroidism (Acute 04/09/13) Psoriasis (Acute 11/03/13) Stable on Stelara. [facility] [place]anoma of nose (Acute 11/03/13) Dr. chandler [facility] [place] Gastroesophageal reflux disease (Acute 04/09/13) Cirrhosis of liver (Acute) 07/2020 US-IMPRESSION: Mildly enlarged liver. Focal liver lesions seen previously are not demonstrated on today's exam. 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 Hemangioma of liver (04/09/13) saw [facility] [place] problematic History of tobacco use (10/07/12) 40 pack year hist Hx of coronary artery disease 3 stents Hx of glaucoma Hx of Guillain-[place] syndrome x2 episodes, as a child, 2018requiring months of rehab hospital stay resulting in deconditioned state Hx of hearing loss Bilateral hearing aids Hx of peripheral vascular disease LLE stent Hx of psoriasis Hypertension states reolved after gbs, on no meds with bp110/70-75 Loss of perception for taste SILVANA (obstructive sleep apnea) no longer uses CPAP Peripheral vascular disease (04/09/13) stent left leg Tinnitus Tubular adenoma (~11/2020) Surgical History Excision, Skin Mass [facility] EXCISION AND RECONSTRUCTION History of cataract surgery History of colonoscopy (~11/2020) History of coronary artery stent placement 4 stents drug [id number] History of esophagogastroduodenoscopy (EGD) regular egdq 6months to monitor cirrhosis hx History of excision of mass Hx of tracheostomy x 2 MOHS 11/2013 Status post de Quervain's release surgery R side Family History Mother , age 93 Essential hypertension Father , age 57 Essential hypertension Heart disease Hyperlipidemia Myocardial infarction Stroke Sister Hyperlipidemia Breast cancer Maternal Grandfather No problems noted. Paternal Grandfather No problems noted. Maternal Grandmother No problems noted. Paternal Grandmother No problems noted. Social History Smoking/Tobacco Use Status: Former Tobacco Use tobacco type: cigarettes and cigars Quit Date: 05/21/08 Tobacco: How many years used: 20 Second Hand Exposure: Yes Smoking risk assessment performed?: Yes Alcohol Intake: current Alcohol Intake frequency: 0-2 drinks per day Alcohol type: beer and wine Details: abstinent since 2011 Drug use: Never Substance use type: does not use Caregiver/Support person: Yes Household members: spouse Communication Needs: Hard of Hearing and Corrective Lenses Do you need help understanding health information?: Rarely Pets and animals: Yes Pets and animals: cat(s) and dog(s) Sexually active: No Do you think of yourself as: straight/heterosexual Current gender identity: male What is your relationship status?: How often do you talk on the phone with friends or family?: three or more times per week How often do you get together with friends or relatives?: three or more times per week How often do you attend shinto or holiness services?: 1-3 times per year Do you belong to any clubs or organized social groups?: no Panel score (0-1 are the most socially isolated patients): 2 What type of physical activity do you participate in: other Details: cardiac rehab Duration: 45-60 minutes/day Frequency: 3-4 times per week Tatiana/Anglican: None Special tatiana needs: No Seatbelt use: always Helmet use: No Drive intox or ride w/intox residential recycle driver: No Do you feel safe at home: Yes Do you feel safe in your relationship?: Yes Exam Narrative Exam Narrative: Physical Examination General: alert, awake, cooperative, resting comfortably, no acute distress HEENT: normocephalic, atraumatic; PERRL, EOM intact, conjunctiva normal; no nasal discharge; moist mucous membranes, oral and pharyngeal mucosa normal, tolerating secretions Neck: supple, trachea midline; full ROM Chest: normal to inspection Respiratory: normal respiratory effort, speaking in full sentences Back: Midline lumbar discomfort without crepitus or deformity, no signs of abrasions or ecchymosis Skin: no lesions, rashes or trauma appreciated Neuro: AAOx3, normal speech, moving all extremities; 5/5 strength lower extremities, sensation intact Extremities: Full range of motion ambulatory Psych: Appropriate mood and affect Course Vital Signs Vital signs: Vital Signs Temperature 36.7 C 04/24/23 13:40 Pulse 59 L 04/24/23 13:40 Respiratory Rate 16 04/24/23 13:40 Blood Pressure 184/76 H 04/24/23 13:40 Pulse Oximetry 95 04/24/23 13:40 Temperature 36.7 C 04/24/23 13:40 Temperature Source Temporal Artery Scan 04/24/23 13:40 Pulse 59 L 04/24/23 13:40 Respiratory Rate 16 04/24/23 13:40 Respiratory Effort Normal, Non-Labored 04/24/23 13:46 Blood Pressure 184/76 H 04/24/23 13:40 Blood Pressure Position Sitting 04/24/23 13:40 Pulse Oximetry 95 04/24/23 13:40 Oxygen Delivery Method Room Air 04/24/23 13:40 Oxygen Flow Rate 0 04/24/23 13:40 Pain Level 10 04/24/23 14:06 PAWSS Have you Been Recently Intoxicated or Drunk Within the Last 30 days?: No Have you Ever Experienced Previous Episodes of Alcohol Withdrawal?: No Have you ever Experienced Withdrawal Seizures?: No Have you ever Experienced Delirium Tremens(DT)s?: No Have you ever undergone Alcohol Rehabilitation Treatment (i.e, inpt ot outpatient treatment programs)?: No Have you ever Experienced Blackouts?: No Have you ever Combined Alcohol with other Downers within the last 90 days?: No Have you ever Combined Alcohol with any other Substance of Abuse during the last 90 days?: No Positive Blood Alcohol level on Presentation? [PCS.BAL]: No Evidence of Increased Autonomic Activity (i.e. HR>120, tremor, sweating, agitation, nausea)?: No Result: 0
--- NOTE | 2023-04-24 17:24 | W.EDPROG ---
Date of service: 04/24/23 Time of Service: 17:45 Medical Decision Making Patient was signed out to me by my colleague Dr. Kevin Miranda. Please refer to his HPI, physical exam, assessment and plan. We are awaiting CT results. CT results show evidence of a 20% compression fracture of the superior endplate of the L3 vertebral body. No retropulsion. Repeat exam shows no evidence of cauda equina syndrome. Patient otherwise stable. Patient has been given Lidoderm patch by Dr. Kevin Miranda. Patient stable for discharge. Recommend continued Flexeril Lidoderm patch and NSAIDs at home. No heavy lifting. Discussed the case with the patient as well as his . Discussed red flags for which to return. I have extensively reviewed the treatment plan and discharge instructions with the patient and their family. I have addressed all patient concerns at this time. The patient and family was made aware of what symptoms to monitor for that would warrant a return to the emergency department. Discussed the plan with the patient and family, they demonstrate verbal understanding and agreement with our assessment and plan at this time. The documentation in this chart was dictated using [employer] dictation software. Please excuse any dictation errors. FINDINGS: Bones: There is an acute compression fracture of the L3 vertebral body superior endplate with approximately 20 percent height loss. Fracture lines extend to the inferior endplate level. No prominent posterior displacement of the posterior cortex of this fracture vertebral body.. Fracture lines do not appear to extend into the pedicles. Transverse processes are intact. Spinous process is an lamina intact. No obvious disc herniation at this level. Central canal dimensions are lower normal. No other fractures identified. No osseous lytic is. PARASPINAL SOFT TISSUES: Visualized paraspinal tissues appear unremarkable. Endovascular stent is noted in the left common iliac artery. IMPRESSION: 1. 20 percent compression fracture of superior endplate of L3 vertebral body. No retropulsion. No acute canal compromise. No facet joint malalignment. Sign Out Sign Out Data: Sign Out Comment: fall from stooped position in his socks, midline L tenderness, meds given, neuro intact, pending CT read for dispo Last updated by Cam Franks MD at 04/24/23 17:04 Discharge Plan Disposition Patient Disposition: Home Condition: Good Discharge Details Clinical Impression: Closed compression fracture of L3 vertebra Primary Care Provider: Juan Antonio De Dios ED Provider: Billy Bah Douglas Meds and New Rx's Prescriptions: New cyclobenzaprine 10 mg tablet 10 mg PO TID Qty: 14 0RF lidocaine [Lidoderm] 5 % adhesive patch,medicated 1 patch Topical Q24H Qty: 15 0RF No Action fluoxetine 20 mg capsule 20 mg PO DAILY Qty: 90 3RF levothyroxine [Synthroid] 75 mcg tablet 75 mcg PO DAILY Qty: 90 3RF Rx Instructions: 1 TAB DAILY Lumigan 0.01 % drops 1 drp ophthalmic (eye) QPM Patient Comments: PLACE ONE DROP INTO EACH EYE AT BEDTIME dorzolamide-timolol 22.3-6.8 mg/mL drops 1 drp ophthalmic (eye) BID Patient Comments: INSTILL 1 DROP INTO EACH EYE TWICE A DAY fluorouracil 5 % cream 1 applic topical BID Patient Comments: APPLY TO THE SKIN TWO TIMES A DAY aspirin [Adult Low Dose Aspirin] 81 mg tablet,delayed release (DR/EC) 81 mg PO DAILY omega-3 fatty acids 1,250 mg capsule 3,780 mg PO ONCE trazodone 100 mg tablet 200 mg PO QHS PRN (Reason: sleep) Qty: 180 4RF acyclovir 400 mg tablet 400 mg PO Q4H PRN Qty: 20 5RF Rx Instructions: PRN FOR OUTBREAK pravastatin 80 mg tablet 80 mg PO DAILY Qty: 90 4RF nitroglycerin 0.4 mg tablet, sublingual 0.4 mg Buccal .q 5 min Qty: 25 2RF Rx Instructions: One q 5 mins; repeat x2; if still having pain, call sennosides [senna] 8.6 MG tablet 2 tab-cap PO DAILY docusate sodium [Colace] 100 MG capsule 2 tab PO DAILY brimonidine 0.1 % drops 1 drp OP DAILY Patient Comments: no dose listed.HE lisinopril 5 mg tablet 5 mg PO DAILY Qty: 90 3RF pantoprazole 40 mg tablet,delayed release (DR/EC) 40 mg PO DAILY Qty: 90 3RF sildenafil 100 mg tablet 100 mg PO DAILY PRN (Reason: sexual activity) Qty: 30 2RF Rx Instructions: administer 30 minutes to 4 hours before activity Stelara 45 mg/0.5 mL Syringe 45 mg SUBCUT Q12W Discharge Instructions Instructions: Acute Low Back Pain (ED) Additional Instructions: At this time your CAT scan shows evidence of a L3 spinal compression fracture with 20% loss of endplate height. While this does not need surgical management, there is a chance that it could worsen over time and may potentially need surgical intervention in the future. I expect 1 to 2 months for potential resolution. In the meantime do not lift anything greater than 5 pounds for the next 2 weeks. Avoid any significant vigorous physical activity. Perform easy gentle regular activities at home without any significant bending or lifting. You have been given a prescription for Lidoderm patch. If your insurance does not cover this you can get [id number] Lidoderm patches at 4% which are almost just as effective. Please take the Flexeril as directed but do not take it when driving or operating any vehicles or heavy machinery, swimming, taking long baths, or operating firearms. Please use a heating pad as often as possible on your back. Perform daily gentle stretches on your back. Please continue to take the Tylenol and Motrin. You can take 1000 mg of Tylenol every 6 hours and 600 mg of ibuprofen every 6 hours. If you notice any worsening of your symptoms, or any new symptoms such as vomiting, diarrhea, fever, chills, shortness of breath, chest pain, numbness or tingling in your groin or legs, weakness in your legs, loss of control for your bowels or bladder, or fainting , please return immediately to the emergency department for reevaluation. Please follow up with your primary care provider as soon as possible for reassessment and reevaluation. As always, it was a pleasure participating in your medical care today. Referrals: Juan Antonio De Dios MD [Primary Care Provider] -
== END 2023-04-24 17:48 | disposition home or self-care (01) ==
PROVIDERS: Emergency Provider Student in an Organized Health Care Education/Training Program; PCP Family Medicine
DX: S32.039A Unspecified fracture of third lumbar vertebra, initial encounter for closed fracture (principal); W19.XXXA Unspecified fall, initial encounter; M54.9 Dorsalgia, unspecified; I10 Essential (primary) hypertension; Z86.69 Personal history of other diseases of the nervous system and sense organs; Z79.82 Long term (current) use of aspirin; Z79.899 Other long term (current) drug therapy; E03.9 Hypothyroidism, unspecified; E78.5 Hyperlipidemia, unspecified; I25.10 Atherosclerotic heart disease of native coronary artery without angina pectoris; Z95.5 Presence of coronary angioplasty implant and graft
CPT/HCPCS: 00123; 96372; 99285; 72131; 99284; J1885

== ENCOUNTER 2023-05-31 03:27 | Outpatient (CLI) | payer MEDICARE, BC, SELFPAY ==
[2023-05-31 17:07] LABS: ALT 57 U/L (16-63); AST 37 U/L (15-37); Albumin 3.3 g/dL (3.4-5.0); Alkaline Phosphatase 173 U/L (46-116); Bilirubin, Direct 0.1 mg/dL (0.0-0.2); Bilirubin, Total 0.4 mg/dL (0.2-1.0); Total Protein 6.6 g/dL (6.4-8.2)
== END 2023-05-31 03:28 | disposition home or self-care (01) ==
LOC: LBO 03:27
PROVIDERS: PCP Family Medicine; Visit Provider Family Medicine
DX: R74.8 Abnormal levels of other serum enzymes (principal)
CPT/HCPCS: 36415; 80076

== ENCOUNTER 2024-01-28 01:21 | Outpatient (CLI) | payer MEDICARE, BC, SELFPAY ==
--- NOTE | 2024-01-28 14:00 | DI.MRI_ITS ---
Exam(s) MR LUMBAR SPINE WO EXAM: MR LUMBAR SPINE WO CLINICAL HISTORY: persistent pain despite 9 months PT M54.50 LOW BACK PAIN. TECHNIQUE: Multiplanar multisequence MRI of the Lumbar spine was performed. COMPARISON: MR MRI - LUMBAR SPINE WO CONTRAST from 11/16/2010 FINDINGS: Bones: The last intervertebral disc space is designated the L5/S1 level for the numbering purpose of this ex amination. Severe compression fracture of L3, worsening when compared with prior CT. The remaining vertebral bod y heights are well maintained. Alignment: Unremarkable. The bones appear osteoporotic. Flowing osteophytes are noted at multiple levels which could indicate ankylosing spondylitis. Cord: The conus tip ends at the T12 level. It is of normal size and signal intensity. T12-L1: No focal disc herniation is present. No central spinal canal stenosis.No neural foraminal st enosis. L1-2: No focal disc herniation is present. No central spinal canal stenosis.No neural foraminal sten osis. L2-3:Small con circumferentially projecting osteophytes. Facet degenerative changes. No focal disc he rniation is present. Mild central spinal canal stenosis.No neural foraminal stenosis. L3-4: Mild disc bulging.No focal disc herniation is present. Facet degenerative changes and ligamento us hypertrophy cause mild central spinal canal stenosis. Mild bilateral neural foraminal stenosis. L4-5:Broad-based disc bulging with mild endplate osteophytes. Facet degenerative changes. Facet joint cyst on the left. No focal disc herniation is present. [id number] central spinal canal stenos is.No neural foraminal stenosis. L5-S1: Partial fruit fusion across the L5-S1 disc. No focal disc herniation is present. No central spinal canal stenosis.No neural foraminal stenosis. The visualized SI joints and sacrum are unremarkable. Soft tissues: The paraspinal soft tissues are unremarkable. IMPRESSION: Severe old L3 compression fracture. Degenerative disc changes and facet degenerative changes cause [id number] central canal stenosi s at L4-5 and mild central canal stenosis at L3-4. DATA REPOSITORY:
== END 2024-01-28 01:41 ==
LOC: DI 01:21
PROVIDERS: PCP Family Medicine; Visit Provider Family Medicine
DX: M48.061 Spinal stenosis, lumbar region without neurogenic claudication (principal)
CPT/HCPCS: 72148

== ENCOUNTER 2024-02-13 09:30 | Outpatient (CLI) | payer MEDICARE, BC, SELFPAY ==
[2024-02-13 10:08] LABS: CREATININE 1.1 mg/dL (0.70-1.30); Calculated LDL 86 mg/dL (<100); Cholesterol 142 mg/dL (<200); Estimated GFR 68.71 (mL/min/1.73m2); HDL Cholesterol 44 mg/dL (40-60); Magnesium 2.1 mg/dL (1.8-2.4); Potassium 4.1 mmol/L (3.5-5.1); TSH (W/Ref FT4) 1.56 uIU/mL (0.36-3.74); Triglyceride 64 mg/dL (<150)
== END 2024-02-13 09:31 | disposition home or self-care (01) ==
LOC: LBO 09:30
PROVIDERS: PCP Family Medicine; Visit Provider Family Medicine
DX: E83.42 Hypomagnesemia (principal); E78.5 Hyperlipidemia, unspecified; I10 Essential (primary) hypertension; E03.9 Hypothyroidism, unspecified
CPT/HCPCS: 36415; 80061; 82565; 83735; 84132; 84443

== ENCOUNTER 2024-03-27 02:59 | Outpatient (CLI) | payer MEDICARE, BC, SELFPAY ==
--- NOTE | 2024-03-27 06:45 | DI.DEXA_ITS ---
Exam(s) XR DEXA BONE DENSITY W/WO CHRISTINA EXAM: XR DEXA BONE DENSITY W/WO CHRISTINA CLINICAL HISTORY: low back Pain,comp fx,s32.000a TECHNIQUE: COMPARISON: No exams were available for comparison FINDINGS: Lateral Spine Image: There is a stable L3 compression fracture deformity. Left hip: Total T-Score: -0.8 Total Z-Score: 0.2 T- and Z-scores: Within normal limits. There is osteopenia in the femoral neck with a T-score of -1.2 . Lumbar Spine: Total T-Score: 2.2 Total Z-Score: 3.3 T- and Z-scores: Within normal limits. IMPRESSION: No evidence of osteoporosis.
== END 2024-03-27 03:19 ==
LOC: DI 02:59
PROVIDERS: PCP Family Medicine; Visit Provider Anesthesiology Pain Medicine
DX: S32.038D Other fracture of third lumbar vertebra, subsequent encounter for fracture with routine healing (principal); M54.50 Low back pain, unspecified; X58.XXXD Exposure to other specified factors, subsequent encounter
CPT/HCPCS: 77080

== ENCOUNTER 2024-03-31 08:02 | Outpatient (CLI) | payer MEDICARE, BC, SELFPAY ==
--- NOTE | 2024-03-31 08:00 | RT.EKG_ITS ---
APPROVED REPORT Exam: Resting ECG Reason for Exam: cad Patient Location: O HR:39 bpm ECG Measurements Heart Rate 39 AXIS WV 297 P -15 QRSd 100 QRS -35 QT 515 T 13 QTc 415 Conclusion Sinus bradycardia...rate< 50 Prolonged WV interval...WV >230, V-rate 30- 49 Left axis
== END 2024-03-31 08:03 | disposition home or self-care (01) ==
LOC: DI.CARD 08:03
PROVIDERS: PCP Family Medicine; Visit Provider Internal Medicine Cardiovascular Disease
DX: I10 Essential (primary) hypertension (principal); Z86.79 Personal history of other diseases of the circulatory system; R94.31 Abnormal electrocardiogram [ECG] [EKG]
CPT/HCPCS: 93010

== ENCOUNTER → 2024-03-31 13:18 | Outpatient (BNVA) | payer MEDICARE, BC, SELFPAY | PROVIDERS: PCP Family Medicine; Visit Provider Internal Medicine Cardiovascular Disease | DX: R00.1 Bradycardia, unspecified (principal); Z86.79 Personal history of other diseases of the circulatory system | CPT/HCPCS: 93005; 99213 ==

== ENCOUNTER 2024-06-05 00:22 | Outpatient (CLI) | payer MEDICARE, BC, SELFPAY ==
--- NOTE | 2024-06-05 09:01 | DI.MRI_ITS ---
Exam(s) MR LUMBAR SPINE WO EXAM: MR LUMBAR SPINE WO CLINICAL HISTORY: wedge comp fx,s32.000a. TECHNIQUE: Multiplanar multisequence MRI of the Lumbar spine was performed. COMPARISON: CT CT LUMBAR SPINE WO from 04/24/2023 MR MR LUMBAR SPINE WO from 01/28/2024 CR XR DEXA BONE DENSITY W/WO CHRISTINA from 03/27/2024 FINDINGS: Bones: The last intervertebral disc space is designated the L5/S1 level for the numbering purpose of this ex amination. Stable appearance of L3 compression fracture with severe compression of the central portion. The rem aining vertebral body heights are well maintained. Alignment: Unremarkable. The marrow signal characteristics are unremarkable. Cord: The conus tip ends at the T12 level. It is of normal size and signal intensity. T12-L1: No focal disc herniation is present. No central spinal canal stenosis.No neural foraminal st enosis. L1-2: No focal disc herniation is present. No central spinal canal stenosis.No neural foraminal sten osis. L2-3:severe loss of disc height. Broad-based small endplate osteophytes. Facet degenerative changes and ligamentous hypertrophy create mild central canal stenosis. No focal disc herniation is present . Mild bilateral neural foraminal stenosis. L3-4: Mild disc bulging. Facet degenerative changes and ligamentous hypertrophy. No focal disc donis iation is present. Mild central spinal canal stenosis.No neural foraminal stenosis. L4-5:Stable broad-based disc bulging. No focal disc herniation is present. Facet degenerative hernandez es. Stable dqxp-yd-gbqqhoiu central canal stenosis. No central spinal canal stenosis.No neural fora wilman stenosis. L5-S1: Some bony ankylosis across the L5-S1 disc. Endplate osteophytes projecting mainly anteriorly. No focal disc herniation is present. No central spinal canal stenosis.No neural foraminal stenosis. The visualized SI joints and sacrum are unremarkable. Soft tissues: The paraspinal soft tissues are unremarkable. IMPRESSION: Stable appearance of L3 compression fracture. No new compression fractures. Stable degenerative disc changes and facet degenerative changes. DATA REPOSITORY:
== END 2024-06-05 00:42 ==
LOC: DI 00:23
PROVIDERS: PCP Family Medicine; Visit Provider Anesthesiology Pain Medicine
DX: S32.038D Other fracture of third lumbar vertebra, subsequent encounter for fracture with routine healing (principal); X58.XXXD Exposure to other specified factors, subsequent encounter
CPT/HCPCS: 72148

== ENCOUNTER 2025-02-19 00:32 | Outpatient (CLI) | payer MEDICARE, BC, SELFPAY ==
[2025-02-19 14:13] LABS: Calculated LDL 121 mg/dL (<100); Cholesterol 184 mg/dL (<200); Estimated GFR 86.88 (mL/min/1.73m2); HDL Cholesterol 47 mg/dL (>or=40); Potassium 3.7 mmol/L (3.5-5.1); TSH (W/Ref FT4) 2.02 uIU/mL (0.36-3.74); Triglyceride 80 mg/dL (<150)
== END 2025-02-19 00:33 | disposition home or self-care (01) ==
LOC: LOS 00:32
PROVIDERS: PCP Family Medicine; Visit Provider Family Medicine
DX: E03.9 Hypothyroidism, unspecified (principal); E78.5 Hyperlipidemia, unspecified; Z13.220 Encounter for screening for lipoid disorders; I10 Essential (primary) hypertension
CPT/HCPCS: 36415; 80061; 82565; 84132; 84443

== ENCOUNTER → 2025-03-30 12:59 | Outpatient (BNVA) | payer MEDICARE, BC, SELFPAY | PROVIDERS: PCP Family Medicine; Visit Provider Registered Nurse | DX: I25.10 Atherosclerotic heart disease of native coronary artery without angina pectoris (principal); I10 Essential (primary) hypertension; Z95.5 Presence of coronary angioplasty implant and graft; Z79.02 Long term (current) use of antithrombotics/antiplatelets | CPT/HCPCS: 99214 ==